=== PATIENT | female | born 1980 | race African-American/Black ===

== ENCOUNTER 2018-06-15 08:30 | Outpatient (CLI) | payer OTHER ==
[2018-06-15 12:28] LABS: BASOPHILS # (AUTO) 0.1 10^3/uL (0.0-0.1); BASOPHILS % (AUTO) 0.7 %; EOSINOPHILS # (AUTO) 0.2 10^3/uL (0.0-0.7); HGB - HEMOGLOBIN 14.9 g/dL (12.0-16.0); LYMPHOCYTES # (AUTO) 2.4 10^3/uL (1.5-3.5); LYMPHOCYTES % (AUTO) 30.7 %; MEAN CORPUSCULAR HEMOGLOBIN 30.3 pg (27.0-31.0); MEAN CORPUSCULAR HGB CONC 33.7 g/dL (32.0-36.0); MEAN PLATELET VOLUME 9.1 fL (7.9-10.8); MONOCYTES # (AUTO) 0.4 10^3/uL (0.0-1.0); MONOCYTES % (AUTO) 5.3 %; NEUTROPHILS # (AUTO) 4.7 10^3/uL (1.5-6.6); NEUTROPHILS % (AUTO) 61.3 %; PLT - PLATELET COUNT 331 10^3/uL (130-450); RED BLOOD COUNT 4.93 10^6/uL (4.20-5.40); RED CELL DISTRIBUTION WIDTH 13.2 % (12.0-15.0); WHITE BLOOD COUNT 7.7 x10^3/uL (4.8-10.8)
[2018-06-15 12:36] LABS: CALCIUM 9.6 mg/dL (8.5-10.3); CARBON DIOXIDE - CO2 30 mmol/L (21-32); CHLORIDE 100 mmol/L (101-111); GLUCOSE 111 mg/dL (70-100); SODIUM 140 mmol/L (135-145)
[2018-06-15 13:12] LABS: ALBUMIN 4.2 g/dL (3.2-5.5); ALBUMIN/GLOBULIN RATIO 1.1 (1.0-2.2); ALKALINE PHOSPHATASE 45 IU/L (42-121); ALT ALANINE AMINOTRANSFERASE 25 IU/L (10-60); AST ASPARTATE AMINOTRANSFERASE 23 IU/L (10-42); BILIRUBIN,TOTAL 0.7 mg/dL (0.2-1.0); BUN - BLOOD UREA NITROGEN 14 mg/dL (6-20); CHOL/HDL RATIO 5.7 (<4.4); CHOLESTEROL 264 mg/dL; CREATININE 0.8 mg/dL (0.4-1.0); GFR - MDRD 98 (>89); HDL CHOLESTEROL 46 mg/dL; LDL CHOLESTEROL,CALCULATED 184 mg/dL; TOTAL PROTEIN 8.1 g/dL (6.7-8.2); VLDL CHOLESTEROL 34 mg/dL
== END 2018-06-15 08:31 | disposition home or self-care (01) ==
LOC: LAB.WCP 08:30
PROVIDERS: ATTEND Family Medicine
DX: I10 Essential (primary) hypertension (principal); E78.5 Hyperlipidemia, unspecified
CPT/HCPCS: 36415; 80053; 80061; 83721; 84443; 85025

== ENCOUNTER 2018-09-05 08:00 | Outpatient (CLI) | payer OTHER | END 2018-09-05 23:59 | disposition home or self-care (01) | LOC: LAB.R 08:00 | PROVIDERS: ATTEND Registered Nurse | DX: R87.619 Unspecified abnormal cytological findings in specimens from cervix uteri (principal) | CPT/HCPCS: 87491; 87591 ==

== ENCOUNTER 2019-01-21 23:17 | Emergency (ER) | payer OTHER ==
--- NOTE | 2019-01-21 23:24 | ED Physician Documentation ---
History of Present Illness - Stated complaint Stated Complaint: HINOJOSA/BP CONCERN - Chief complaint Chief Complaint: Cardiac - History obtained from History obtained from: Patient - Additonal information Additional information: Patient is a 38-year-old female with history of hypertension presenting with elevated blood pressures at home by her reading over the past 1 week. Patient denies particular inciting incident, change medications, change in diet leading up to elevated blood pressures. Patient has been seen by her primary care physician for years regarding her blood pressures and takes several antihypertensives. Patient reports systolic blood pressures in [id number] over the past 1 week, but has not contacted her primary care physician. Patient has a normal appointment scheduled for February 06, 2019. She has not called to see if the appointment can be moved up. Patient denies associated symptoms with elevated blood pressures except for headache earlier tonight. She denies vision changes, chest pain, abdominal pain, urinary or stool changes, vomiting, or other concerns. No other improving or worsening factors noted. Patient is compliant with medications. Review of Systems Cardiac: denies: Chest pain / pressure Respiratory: denies: Dyspnea GI: denies: Abdominal Pain Neurologic: reports: Headache PD PAST MEDICAL HISTORY - Past Medical History Cardiovascular: Hypertension GI: GERD - Past Surgical History Past Surgical History: No - Present Medications Home Medications: Ambulatory Orders Medication Instructions Recorded Confirmed Carvedilol [Coreg] 25 mg PO DAILY 01/21/19 01/21/19 Chlorthalidone 25 mg PO DAILY 01/21/19 01/21/19 Omeprazole 10 mg PO DAILY 01/21/19 01/21/19 - Allergies Allergies/Adverse Reactions: Allergies Allergy/AdvReac Type Severity Reaction Status Date / Time No Known Drug Allergies Allergy Verified 01/21/19 23:22 PD ED PE NORMAL - Vitals Vital signs reviewed: Yes - General General: Alert and oriented X 3, No acute distress, Well developed/nourished - HEENT HEENT: Atraumatic, PERRL, EOMI (Gross visual acuity intact. No nystagmus.) - Cardiac Cardiac: RRR, No murmur - Respiratory Respiratory: No respiratory distress, Clear bilaterally - Abdomen Abdomen: Normal bowel sounds, Soft, Non tender, Non distended - Derm Derm: Normal color, Warm and dry, No rash - Extremities Extremities: No deformity, No tenderness to palpate - Neuro Neuro: Alert and oriented X 3, No motor deficit, No sensory deficit - Psych Psych: Normal mood, Normal affect Results - Vitals Vitals: Vital Signs - 24 hr 01/21/19 01/21/19 01/21/19 23:18 23:21 23:51 Temperature 36.4 C L 36.9 C Heart Rate 69 69 69 Respiratory 16 16 15 Rate Blood Pressure 170/113 H 170/113 H 147/100 H O2 Saturation 99 99 99 01/22/19 00:23 Temperature Heart Rate Respiratory Rate Blood Pressure 141/98 H O2 Saturation Oxygen O2 Source Room air PD MEDICAL DECISION MAKING - ED course Complexity details: re-evaluated patient, considered differential, d/w patient ED course: Patient has baseline hypertension that appears to have been worsening acutely over the past week or so. Patient denies particular inciting incident, change in diet, change of medication that would elicit such a increase. Patient has not yet contacted her primary care physician and was going to wait until her regular a scheduled exam in January to address this. However, given her repeat evaded blood pressure measurements at home, she came in tonight. Patient does arrive with a mild headache which is likely reflective of her elevated blood pressure and indicates hypertensive urgency, but not emergency, particularly as patient denies other symptoms including chest pain, vision changes, difficulty breathing or otherwise. At this time, do not feel patient is experiencing a stroke, ACS, current infarction, unstable angina, or other acute pathology.Do not feel patient requires invasive testing or imaging at this time, but patient received oral metoprolol with appropriate decrease in her blood pressure. Upon reevaluation, patient also reports resolution of her headache. Further evaluated her medications of chlorthalidone and carvedilol and both can increase in dosing. Feel it is most appropriate to start increasing one medication at a time and to have patient follow up closely with PCP in the next 1-2 days, given the holiday tomorrow.Discussed increasing carvedilol to once in the morning and once in the evening as opposed to once daily with patient. Also discussed strict return precautions, other supportive cares, and contacting her primary care physician tomorrow or Tuesday morning in case they are closed for the holiday. Patient voiced understanding and is comfortable with discharge plan. Departure - Departure Disposition: Home, Self Care Clinical Impression: Hypertension Qualifiers: Hypertension type: unspecified Qualified Code(s): I10 - Essential (primary) hypertension Condition: Good Instructions: Hypertension Control, Choices Low Salt Follow-Up: Quoc Godinez MD [Primary Care Provider] - Tomorrow Comments: Please continue home medications as previously instructed except for carvedilol. Please take carvedilol 25 mg in the morning and carvedilol 25 mg in the evening to help control your blood pressure. Please contact your primary care physician tomorrow to schedule outpatient follow-up and hopefully to receive further advice on medication dosing or changes to help control blood pressure. Return to ED immediately if experience return of or worsening headache, vision changes, chest pain, difficulty breathing, lightheadedness, passing out or other concerns.
[2019-01-21] MEDS ORDERED: METOPROLOL TARTRATE 50 MG TABLET PO STA (23:41)
[2019-01-22 00:47] VITALS: BP 133/89
== END 2019-01-22 00:52 | disposition home or self-care (01) ==
LOC: ED 23:17
DX: I16.0 Hypertensive urgency (principal)
CPT/HCPCS: 99283; A9270

== ENCOUNTER 2019-01-24 08:00 | Outpatient (CLI) | payer OTHER ==
[2019-01-24 12:46] LABS: BASOPHILS # (AUTO) 0.1 10^3/uL (0.0-0.1); BASOPHILS % (AUTO) 0.8 %; EOSINOPHILS # (AUTO) 0.4 10^3/uL (0.0-0.7); EOSINOPHILS % (AUTO) 4.7 %; HGB - HEMOGLOBIN 14.5 g/dL (12.0-16.0); LYMPHOCYTES # (AUTO) 2.8 10^3/uL (1.5-3.5); LYMPHOCYTES % (AUTO) 33.6 %; MEAN CORPUSCULAR HEMOGLOBIN 29.8 pg (27.0-31.0); MEAN CORPUSCULAR HGB CONC 33.1 g/dL (32.0-36.0); MEAN PLATELET VOLUME 8.8 fL (7.9-10.8); MONOCYTES # (AUTO) 0.5 10^3/uL (0.0-1.0); MONOCYTES % (AUTO) 5.6 %; NEUTROPHILS # (AUTO) 4.6 10^3/uL (1.5-6.6); NEUTROPHILS % (AUTO) 55.3 %; PLT - PLATELET COUNT 376 10^3/uL (130-450); RED BLOOD COUNT 4.87 10^6/uL (4.20-5.40); RED CELL DISTRIBUTION WIDTH 12.8 % (12.0-15.0); WHITE BLOOD COUNT 8.3 x10^3/uL (4.8-10.8)
[2019-01-24 13:15] LABS: ALBUMIN 4.3 g/dL (3.2-5.5); ALBUMIN/GLOBULIN RATIO 1.2 (1.0-2.2); ALKALINE PHOSPHATASE 45 IU/L (42-121); ALT ALANINE AMINOTRANSFERASE 18 IU/L (10-60); AST ASPARTATE AMINOTRANSFERASE 20 IU/L (10-42); BILIRUBIN,TOTAL 0.8 mg/dL (0.2-1.0); BUN - BLOOD UREA NITROGEN 13 mg/dL (6-20); CALCIUM 9.6 mg/dL (8.5-10.3); CARBON DIOXIDE - CO2 27 mmol/L (21-32); CHLORIDE 100 mmol/L (101-111); CHOL/HDL RATIO 6.9 (<4.4); CHOLESTEROL 288 mg/dL; CREATININE 0.7 mg/dL (0.4-1.0); GFR - MDRD 115 (>89); GLUCOSE 96 mg/dL (70-100); HDL CHOLESTEROL 42 mg/dL; LDL CHOLESTEROL,CALCULATED 201 mg/dL; LDL/HDL RATIO 4.8 (<4.4); SODIUM 140 mmol/L (135-145); VLDL CHOLESTEROL 45 mg/dL
[2019-01-24 14:22] LABS: HB2 TOTAL 15.7 g/dL; HEMOGLOBIN A1C 0.67 g/dL; HEMOGLOBIN A1C % 6.1 % (4.6-6.2)
== END 2019-01-24 23:59 | disposition home or self-care (01) ==
LOC: LAB.WCP 08:00
PROVIDERS: ATTEND Family Medicine
DX: E87.6 Hypokalemia (principal); E78.5 Hyperlipidemia, unspecified; R73.01 Impaired fasting glucose; I10 Essential (primary) hypertension
CPT/HCPCS: 36415; 80053; 80061; 83036; 83721; 84443; 85025

== ENCOUNTER 2019-02-20 08:27 | Outpatient (CLI) | payer OTHER ==
--- NOTE | 2019-02-20 14:07 | Ultrasound Report ---
Reason: IRREGULAR MENSTRUATION Procedure Date: 02/20/2019 Accession Number: [id number] / [id number] Procedure: US - Pelvic w/Transvaginal CPT Code: FULL RESULT: EXAM: PELVIC ULTRASOUND EXAM DATE: 02/20/2019 09:30 AM. CLINICAL HISTORY: Irregular menstruation. COMPARISON: None. TECHNIQUE: Realtime transabdominal pelvic scan performed to identify the uterus and adnexa and as an overview of other pelvic structures, followed by transvaginal scan to provide greater detail of the uterus and adnexa, with static image documentation. FINDINGS: Uterus: 7.5 x 4.2 x 5.2 cm, volume 87 cc. Anteverted position. The echotexture of the uterus is heterogeneous and the demarcation between endometrium and myometrium is indistinct. Masses: None. Endometrium: 4 mm. Indistinct border to the myometrium as described. Cervix: Unremarkable. Right Ovary: 3.7 x 2.2 x 3.6 cm, volume 15 cc. Normal echotexture and blood flow. 1.2 cm cystic structure is most compatible with dominant follicle. Left Ovary: 3.6 x 2.4 x 3.2 cm, volume 14.8 cc. Normal echotexture and blood flow. Largest cystic structure measuring up to 1.6 cm is most compatible with a dominant follicle. Free Fluid: None. Other: None. IMPRESSION: Indistinct border between the myometrium and endometrium with heterogeneous uterine echotexture is nonspecific but can be seen with adenomyosis. Recommendation: If imaging confirmation of the possible diagnosis is desired, MRI is the appropriate modality. RADIA
== END 2019-02-20 08:28 | disposition home or self-care (01) ==
LOC: DI 08:27
PROVIDERS: ATTEND Nurse Practitioner Obstetrics & Gynecology
DX: N92.6 Irregular menstruation, unspecified (principal)
CPT/HCPCS: 76830; 76856

== ENCOUNTER 2019-03-06 09:40 | Outpatient (CLI) | payer OTHER ==
--- NOTE | 2019-03-07 09:16 | MRI Report ---
Reason: POLYOSTEOARTHRITIS,UNSPECIFIED,PAIN IN RIGHT SHOUL Procedure Date: 03/06/2019 Accession Number: [id number] / [id number] Procedure: MRI - Pelvis W/O CPT Code: FULL RESULT: EXAM: MR PELVIS WITHOUT CONTRAST EXAM DATE: 03/06/2019 11:11 AM. CLINICAL HISTORY: Polyosteoarthritis, unspecified; pain in right shoulder. Irregular menses, fertility planning, abnormality seen on prior ultrasound. COMPARISON: PELVIC W/TRANSVAGINAL 02/20/2019 8:44 AM. TECHNIQUE: Multiplanar breath-hold T1, T2, and DWI sequences obtained through the pelvis on an MR scanner. No intravenous contrast given. FINDINGS: Bowel: The visualized portions of the small bowel, colon, and rectum appear normal. Bladder: The urinary bladder appears normal. Reproductive Organs: Posterior and to the right of the vagina is a 1.6 x 1.1 cm Bartholin's cyst image 8 series 501. A few nabothian cysts are noted. The endometrium as measured in mid sagittal plane measures up to 1.0 cm with a junctional zone of up to 0.7 cm. Bony Structures: No suspicious bony lesions. IMPRESSION: Thickened junctional zone of up to 0.7 cm which does not meet formal criteria for adenomyosis (greater than 1.2 cm) but is above the upper limit of normal which is 0.5 cm. RADIA
== END 2019-03-06 09:41 | disposition home or self-care (01) ==
LOC: DI 09:40
PROVIDERS: ATTEND Nurse Practitioner Obstetrics & Gynecology
DX: N92.6 Irregular menstruation, unspecified (principal); N75.0 Cyst of Bartholin's gland; N88.8 Other specified noninflammatory disorders of cervix uteri; R93.89 Abnormal findings on diagnostic imaging of other specified body structures; Z71.89 Other specified counseling
CPT/HCPCS: 72195

== ENCOUNTER 2019-04-14 11:51 | Emergency (ER) | payer OTHER ==
[2019-04-14] MEDS ORDERED: FAMOTIDINE 20 MG/2 ML VIAL IVP STA (12:17)
[2019-04-14] MEDS ORDERED: SODIUM CHLORIDE 0.9% 1,000 ML IV ONE ×2 (12:17→12:20)
[2019-04-14] MEDS ORDERED: ONDANSETRON 4 MG/2 ML VIAL IVP STA (12:17)
[2019-04-14 12:37] LABS: BASOPHILS # (AUTO) 0.1 10^3/uL (0.0-0.1); BASOPHILS % (AUTO) 0.7 %; EOSINOPHILS # (AUTO) 0.2 10^3/uL (0.0-0.7); EOSINOPHILS % (AUTO) 2.6 %; HGB - HEMOGLOBIN 14.5 g/dL (12.0-16.0); LYMPHOCYTES # (AUTO) 2.2 10^3/uL (1.5-3.5); LYMPHOCYTES % (AUTO) 24.7 %; MEAN CORPUSCULAR HEMOGLOBIN 30.9 pg (27.0-31.0); MEAN CORPUSCULAR VOLUME 93.6 fL (81.0-99.0); MEAN PLATELET VOLUME 10.7 fL (7.9-10.8); MONOCYTES # (AUTO) 0.6 10^3/uL (0.0-1.0); MONOCYTES % (AUTO) 6.3 %; NEUTROPHILS # (AUTO) 5.8 10^3/uL (1.5-6.6); NEUTROPHILS % (AUTO) 65.4 %; PLT - PLATELET COUNT 328 10^3/uL (130-450); RED BLOOD COUNT 4.69 10^6/uL (4.20-5.40); RED CELL DISTRIBUTION WIDTH 12.8 % (12.0-15.0); WHITE BLOOD COUNT 8.9 x10^3/uL (4.8-10.8)
[2019-04-14 12:52] LABS: ALBUMIN/GLOBULIN RATIO 1.1 (1.0-2.2); BILIRUBIN,TOTAL 0.9 mg/dL (0.2-1.0); CALCIUM 9.3 mg/dL (8.5-10.3); CREATININE 0.8 mg/dL (0.4-1.0); MAGNESIUM 2.2 mg/dL (1.7-2.8); TOTAL PROTEIN 7.7 g/dL (6.7-8.2)
--- NOTE | 2019-04-14 13:17 | ED Physician Documentation ---
PD HPI NVD - Stated complaint Stated Complaint: WEAKNESS/SICK - Chief complaint Chief Complaint: General - History obtained from History obtained from: Patient - History of Present Illness Timing - onset: How many days ago (5) Timing - duration: Days (5) Timing - details: Abrupt onset (started with vomiting and diarrhea Tuesday (5 days ago) that was severe for a day or so, but has continued with nausea and some vomiting, poor intake. DIarrhea has mainly resolved. Feeling generally weak.), Still present Associated symptoms: Abdominal pain (some epigastric), Loss of appetite. No: Fever, Near syncope / syncope Contributing factors: No: Sick contact, Bad food, Travel, Recent antibiotics Similar symptoms before: Has not had sx before Recently seen: Not recently seen Review of Systems Constitutional: reports: Fatigue. denies: Fever, Myalgias Nose: denies: Rhinorrhea / runny nose, Congestion Throat: denies: Sore throat Cardiac: denies: Chest pain / pressure Respiratory: denies: Cough GI: reports: Nausea, Vomiting, Diarrhea. denies: Abdominal Swelling, Hematemesis, Bloody / black stool : denies: Dysuria, Frequency Neurologic: reports: Generalized weakness. denies: Near syncope, Altered mental status PD PAST MEDICAL HISTORY - Past Medical History Cardiovascular: Hypertension Respiratory: None Endocrine/Autoimmune: None GI: GERD - Past Surgical History Past Surgical History: No - Present Medications Home Medications: Ambulatory Orders Medication Instructions Recorded Confirmed Carvedilol [Coreg] 25 mg PO DAILY 01/21/19 01/21/19 Chlorthalidone 25 mg PO DAILY 01/21/19 01/21/19 Omeprazole 10 mg PO DAILY 01/21/19 01/21/19 Ondansetron Odt [Zofran] 4 mg TL Q6H PRN #10 tablet 04/14/19 - Allergies Allergies/Adverse Reactions: Allergies Allergy/AdvReac Type Severity Reaction Status Date / Time No Known Drug Allergies Allergy Verified 04/14/19 11:57 - Social History Does the pt smoke?: No Smoking Status: Never smoker Does the pt drink ETOH?: No Does the pt have substance abuse?: No - Immunizations Immunizations are current?: Yes - POLST Patient has POLST: No PD ED PE NORMAL - Vitals Vital signs reviewed: Yes - General General: Alert and oriented X 3, No acute distress, Well developed/nourished - HEENT HEENT: Pharynx benign. No: Moist mucous membranes - Neck Neck: Supple, no meningeal sign, No adenopathy - Cardiac Cardiac: RRR, No murmur - Respiratory Respiratory: Clear bilaterally - Abdomen Abdomen: Soft, Non tender, Non distended, No organomegaly. No: Normal bowel sounds (diminished) - Rectal Rectal: Deferred - Back Back: No CVA TTP - Derm Derm: Normal color, Warm and dry - Extremities Extremities: No edema, No calf tenderness / cord Results - Vitals Vitals: Oxygen O2 Source Room air - Labs Labs: Laboratory Tests 04/14/19 04/14/19 04/14/19 12:29 12:29 12:29 WBC 8.9 RBC 4.69 Hgb 14.5 Hct 43.9 MCV 93.6 MCH 30.9 MCHC 33.0 RDW 12.8 Plt Count 328 MPV 10.7 Neut # (Auto) 5.8 Lymph # (Auto) 2.2 [place] # (Auto) 0.6 Eos # (Auto) 0.2 Baso # (Auto) 0.1 Absolute Nucleated RBC 0.00 Nucleated RBC % 0.0 Sodium 138 Potassium 3.5 Chloride 104 Carbon Dioxide 21 Anion Gap 13.0 BUN 13 Creatinine 0.8 Estimated GFR (MDRD) 98 Glucose 136 H Calcium 9.3 Magnesium 2.2 Total Bilirubin 0.9 AST 26 ALT 21 Alkaline Phosphatase 44 Total Creatine Kinase 96 Total Protein 7.7 Albumin 4.0 Globulin 3.7 Albumin/Globulin Ratio 1.1 Lipase 38 Serum HCG, Qual NEGATIVE PD MEDICAL DECISION MAKING - ED course Complexity details: re-evaluated patient (feeling much better with fluids and meds; able to tolerate orally. ), considered differential (presumed viral GE or food related. ), d/w patient Departure - Departure Disposition: Home, Self Care Clinical Impression: Nausea vomiting and diarrhea, Dehydration Condition: Stable Record reviewed to determine appropriate education?: Yes Instructions: ED Nausea Vomiting Follow-Up: Quoc Godinez DO [Primary Care Provider] - Prescriptions: Ondansetron Odt [Zofran] 4 mg TL Q6H PRN #10 tablet PRN Reason: Nausea / Vomiting Comments: Continue some Zantac or Pepcid daily for a week or so as the stomach heals. Ondansetron if needed for nausea. Small frequent fluids today. Off work today and tomorrow. Recheck if not improved over the next few days. Forms: Activity restrictions Discharge Date/Time: 04/14/19 14:04
[2019-04-14 13:31] LABS: HCG,QUALITATIVE BLOOD NEGATIVE
[2019-04-14 13:57] VITALS: BP 119/83
== END 2019-04-14 14:04 | disposition home or self-care (01) ==
LOC: ED 11:51
DX: E86.0 Dehydration (principal); R11.2 Nausea with vomiting, unspecified; R19.7 Diarrhea, unspecified; I10 Essential (primary) hypertension
CPT/HCPCS: 36415; 80053; 82550; 83690; 83735; 84703; 85025; 96374; 99283

== ENCOUNTER 2019-05-10 18:02 | Emergency (ER) | payer OTHER ==
[2019-05-10 18:11] VITALS: BP 129/96
== END 2019-05-10 18:45 | disposition left against medical advice (07) ==
LOC: ED 18:02
DX: Z53.21 Procedure and treatment not carried out due to patient leaving prior to being seen by health care provider (principal)

== ENCOUNTER 2019-05-10 19:05 | Emergency (ER) | payer OTHER ==
--- NOTE | 2019-05-10 20:21 | ED Physician Documentation ---
History of Present Illness - Stated complaint Stated Complaint: L SIDED NUMBNESS - Chief complaint Chief Complaint: General - History obtained from History obtained from: Patient - History of Present Illness Timing: Other (38-year-old woman with history of hypertension presents with a week's worth of progressive left-sided numbness that spans face arm and leg. There is no associated weakness. She has never had this before. She has had some headaches in the mornings.) Review of Systems Constitutional: denies: Fever, Chills Eyes: denies: Loss of vision, Decreased vision, Photophobia, Discharge, Irritation Ears: denies: Loss of hearing, Ear pain, Drainage/discharge Nose: denies: Rhinorrhea / runny nose, Congestion Throat: denies: Dental pain / toothache, Sore throat Cardiac: denies: Chest pain / pressure, Palpitations PD PAST MEDICAL HISTORY - Past Medical History Past Medical History: Yes Cardiovascular: Hypertension Respiratory: None Endocrine/Autoimmune: None GI: GERD - Past Surgical History Past Surgical History: No - Present Medications Home Medications: Ambulatory Orders Medication Instructions Recorded Confirmed Carvedilol [Coreg] 25 mg PO BID 01/21/19 01/21/19 Chlorthalidone 25 mg PO DAILY 01/21/19 01/21/19 Omeprazole 10 mg PO DAILY 01/21/19 01/21/19 hydrALAZINE [Apresoline] 25 mg ORAL BID 05/10/19 05/10/19 - Allergies Allergies/Adverse Reactions: Allergies Allergy/AdvReac Type Severity Reaction Status Date / Time No Known Drug Allergies Allergy Verified 04/14/19 11:57 - Social History Does the pt smoke?: No Smoking Status: Never smoker Does the pt drink ETOH?: No Does the pt have substance abuse?: No - Immunizations Immunizations are current?: Yes - POLST Patient has POLST: No PD ED PE NORMAL - Vitals Vital signs reviewed: Yes - General General: Alert and oriented X 3, No acute distress - HEENT HEENT: PERRL, EOMI - Neck Neck: Supple, no meningeal sign, No bony TTP - Cardiac Cardiac: RRR, No murmur - Respiratory Respiratory: No respiratory distress, Clear bilaterally - Abdomen Abdomen: Normal bowel sounds, Soft, Non tender - Back Back: No CVA TTP, No spinal TTP - Extremities Extremities: No deformity, No tenderness to palpate, No edema, No calf tenderness / cord - Neuro Neuro: Alert and oriented X 3, No motor deficit, Normal speech, Other (NIH stroke scale is only notable for left-sided numbness of the face and arm, she does not notice it on exam on the leg. Total score is 1.) Results - Vitals Vitals: Vital Signs - 24 hr 05/10/19 05/10/19 19:11 22:24 Temperature 36.3 C L Heart Rate 70 64 Respiratory 16 16 Rate Blood Pressure 117/90 H 115/77 O2 Saturation 99 98 Oxygen O2 Source Room air - Labs Labs: Laboratory Tests 05/10/19 05/10/19 05/10/19 20:25 20:32 20:32 WBC 10.6 RBC 4.92 Hgb 14.6 Hct 45.6 MCV 92.7 MCH 29.7 MCHC 32.0 RDW 12.3 Plt Count 382 MPV 10.0 Neut # (Auto) 6.7 H Lymph # (Auto) 2.9 [place] # (Auto) 0.7 Eos # (Auto) 0.2 Baso # (Auto) 0.1 Absolute Nucleated RBC 0.00 Nucleated RBC % 0.0 Sodium 138 Potassium 3.0 L Chloride 95 L Carbon Dioxide 30 Anion Gap 13.0 BUN 13 Creatinine 0.8 Estimated GFR (MDRD) 98 Glucose 105 H Calcium 9.9 Total Bilirubin 0.9 AST 20 ALT 21 Alkaline Phosphatase 47 Total Protein 8.8 H Albumin 4.6 Globulin 4.2 Albumin/Globulin Ratio 1.1 Lipase 37 Urine Color LT. YELLOW Urine Clarity CLEAR Urine pH 7.0 Ur Specific [place] <=1.005 Urine Protein NEGATIVE Urine Glucose (UA) NEGATIVE Urine Ketones NEGATIVE Urine Occult Blood NEGATIVE Urine Nitrite NEGATIVE Urine Bilirubin NEGATIVE Urine Urobilinogen 0.2 (NORMAL) Ur Leukocyte Esterase NEGATIVE Ur Microscopic Review NOT INDICATED Urine Culture Comments NOT INDICATED Urine HCG, Qual NEGATIVE - Rads (name of study) CT/CTA head Radiology: EMP read contemporaneously (mild atrophy, NAD) PD MEDICAL DECISION MAKING - ED course Complexity details: re-evaluated patient ED course: She presents with a week's worth of neurologic symptoms, she has numbness on the left, but no motor findings. Differential diagnosis would include subacute stroke, something along the lines of multiple sclerosis. Given the cranial nerves are affected it must be a central phenomenon. CTA head and angiography of the head was negative. She was advised to follow-up with her doctor tomorrow for consideration for MRI. Departure - Departure Disposition: 01 Home, Self Care Clinical Impression: Left sided numbness Condition: Good Record reviewed to determine appropriate education?: Yes Instructions: ED Paraesthesias Comments: The cause of your symptoms is not clear. The CAT scan and angiogram of your head are without evidence of stroke or vascular issue. I recommend following up with your doctor tomorrow to get scheduled for an MRI of your head. Return for new worsening symptoms. Take a baby aspirin a day until told otherwise by your physician.
[2019-05-10] MEDS ORDERED: IOVERSOL 320 100 ML VIAL IVP ONE ×2 (20:32→21:14)
[2019-05-10 20:36] LABS: BILIRUBIN,URINE NEGATIVE (NEGATIVE); GLUCOSE, URINE (UA) NEGATIVE (NEGATIVE); KETONES,URINE (UA) NEGATIVE (NEGATIVE); LEUKOCYTE ESTERASE, URINE NEGATIVE (NEGATIVE); NITRITE,URINE NEGATIVE (NEGATIVE); OCCULT BLOOD,URINE NEGATIVE (NEGATIVE); PROTEIN,URINE NEGATIVE (NEGATIVE); UROBILINOGEN,URINE 0.2 (NORMAL) E.U./dL (NORMAL)
[2019-05-10 20:41] LABS: CLARITY,URINE CLEAR (CLEAR)
[2019-05-10 20:42] LABS: HCG UR QUAL NEGATIVE
[2019-05-10 20:43] LABS: BASOPHILS # (AUTO) 0.1 10^3/uL (0.0-0.1); BASOPHILS % (AUTO) 0.5 %; EOSINOPHILS # (AUTO) 0.2 10^3/uL (0.0-0.7); EOSINOPHILS % (AUTO) 2.3 %; HGB - HEMOGLOBIN 14.6 g/dL (12.0-16.0); LYMPHOCYTES # (AUTO) 2.9 10^3/uL (1.5-3.5); LYMPHOCYTES % (AUTO) 27.7 %; MEAN CORPUSCULAR HEMOGLOBIN 29.7 pg (27.0-31.0); MEAN CORPUSCULAR VOLUME 92.7 fL (81.0-99.0); MONOCYTES # (AUTO) 0.7 10^3/uL (0.0-1.0); MONOCYTES % (AUTO) 6.1 %; NEUTROPHILS # (AUTO) 6.7 10^3/uL (1.5-6.6); NEUTROPHILS % (AUTO) 63.2 %; PLT - PLATELET COUNT 382 10^3/uL (130-450); RED BLOOD COUNT 4.92 10^6/uL (4.20-5.40); RED CELL DISTRIBUTION WIDTH 12.3 % (12.0-15.0); WHITE BLOOD COUNT 10.6 x10^3/uL (4.8-10.8)
[2019-05-10 21:00] LABS: ALBUMIN 4.6 g/dL (3.2-5.5); ALBUMIN/GLOBULIN RATIO 1.1 (1.0-2.2); BILIRUBIN,TOTAL 0.9 mg/dL (0.2-1.0); CALCIUM 9.9 mg/dL (8.5-10.3); CREATININE 0.8 mg/dL (0.4-1.0); TOTAL PROTEIN 8.8 g/dL (6.7-8.2)
[2019-05-10 22:25] VITALS: BP 115/77
--- NOTE | 2019-05-10 22:45 | CT Report ---
Reason: L sided numbness Procedure Date: 05/10/2019 Accession Number: [id number] / [id number] Procedure: CT - ANGIO HEAD W/WO CPT Code: FULL RESULT: EXAM: CT ANGIOGRAM HEAD. CT SCAN OF THE HEAD WITHOUT AND WITH CONTRAST. EXAM DATE: 05/10/2019 09:15 PM. CLINICAL HISTORY: Left-sided numbness. COMPARISON: None. TECHNIQUE: - CT Scan Head: Using a multidetector scanner, axial images were acquired from the foramen magnum to the skull vertex prior to and following contrast administration. - CT Angiogram: Using a multidetector scanner, high-resolution axial images were acquired from the skull base through vertex following rapid infusion of intravenous contrast. Reformats: Multiplanar MIP reformats were reconstructed. Nascet criteria used for stenosis measurement. IV Contrast: OPTI 320 80 mL. In accordance with CT protocol optimization, one or more of the following dose reduction techniques were utilized for this exam: automated exposure control, adjustment of mA and/or KV based on patient size, or use of iterative reconstructive technique. FINDINGS: NON-CONTRAST HEAD: Parenchyma: No intraparenchymal hemorrhage. No evidence of mass, midline shift, or CT findings of infarction. Bhatia-white differentiation is distinct. Extraaxial Spaces: Mildly prominent low density bilateral frontal extra-axial fluid is present, likely representing expansion of the subarachnoid space from underlying cerebral volume loss which is greater than expected for the patient's age. No subdural or epidural collections identified. Ventricles: Normal in size and position. Sinuses and orbits: A small mucous retention cyst is present in the right maxillary sinus. The orbits and mastoid sinuses are unremarkable. Bones: No evidence of fracture or calvarial defect. POST-CONTRAST HEAD: No abnormal enhancement. There is normal contrast opacification in the dural venous sinuses. CT ANGIOGRAM HEAD: The internal carotid arteries are patent from the superior cervical to the supraclinoid portions. Mild calcified plaque is present in the bilateral carotid siphons but no high-grade stenosis is seen. The bilateral A1, A2, M1, M2 segments are patent. A normal caliber anterior communicating artery is present. In the posterior circulation, the bilateral V4 segments are patent. The bilateral PICAs are patent. The basilar artery is widely patent throughout its course to the terminus. There is normal contrast opacification in the superior cerebellar and posterior cerebral arteries. There is near origin of the right posterior cerebral artery with a hypoplastic P1 segment, normal variant. A left posterior communicating artery is not seen. IMPRESSION: 1. Mild generalized cerebral volume loss is present, greater than expected for the patient's age. 2. No other acute intracranial process or abnormal brain parenchymal enhancement is seen. 3. Patent dural venous sinuses. 4. Unremarkable CTA of the head. RADIA
[2019-05-10] MEDS ORDERED: ASPIRIN CHEW 81 MG TABLET PO STA (23:03)
== END 2019-05-10 23:07 | disposition home or self-care (01) ==
LOC: ED 19:05
DX: R20.0 Anesthesia of skin (principal); I10 Essential (primary) hypertension
CPT/HCPCS: 36415; 70496; 80053; 81003; 81025; 83690; 85025; 99284; A9270; Q9967; 81001; 87086

== ENCOUNTER 2019-05-11 11:15 | Outpatient (CLI) | payer OTHER ==
--- NOTE | 2019-05-11 13:33 | XRAY Report ---
Reason: LEFT CERVICAL RADICULOPATHY Procedure Date: 05/11/2019 Accession Number: [id number] / [id number] Procedure: WCP - Cervical Spine 2 View CPT Code: FULL RESULT: EXAM: CERVICAL SPINE RADIOGRAPHY EXAM DATE: 05/11/2019 11:36 AM. CLINICAL HISTORY: LEFT CERVICAL RADICULOPATHY. COMPARISONS: None. TECHNIQUE: 3 views. FINDINGS: Alignment: Normal. No spondylolisthesis or scoliosis. Bones: The cervical vertebral bodies and posterior elements are well visualized from the skull base through C7-T1. No fractures or bone lesions. Disks: Normal. Disk heights are maintained. Facets: No degenerative disease. Soft Tissues: Normal. No prevertebral soft tissue swelling. The visualized lung apices are clear. IMPRESSION: Normal cervical spine radiography. RADIA
== END 2019-05-11 23:59 | disposition home or self-care (01) ==
LOC: DI.WCP 11:15 → EDSTATUS 13:36 → DI.WCP 23:59
PROVIDERS: ATTEND Family Medicine
DX: M54.12 Radiculopathy, cervical region (principal)
CPT/HCPCS: 72040

== ENCOUNTER 2019-07-23 08:00 | Outpatient (CLI) | payer OTHER ==
[2019-07-23 19:11] LABS: ALBUMIN 4.2 g/dL (3.2-5.5); ALBUMIN/GLOBULIN RATIO 1.2 (1.0-2.2); ALKALINE PHOSPHATASE 40 IU/L (42-121); ALT ALANINE AMINOTRANSFERASE 18 IU/L (10-60); AST ASPARTATE AMINOTRANSFERASE 19 IU/L (10-42); BILIRUBIN,TOTAL 0.9 mg/dL (0.2-1.0); BUN - BLOOD UREA NITROGEN 12 mg/dL (6-20); CALCIUM 9.3 mg/dL (8.5-10.3); CARBON DIOXIDE - CO2 27 mmol/L (21-32); CHLORIDE 98 mmol/L (101-111); CHOL/HDL RATIO 4.8 (<4.4); CHOLESTEROL 240 mg/dL; CREATININE 0.9 mg/dL (0.4-1.0); GFR - MDRD 85 (>89); GLUCOSE 168 mg/dL (70-100); HDL CHOLESTEROL 50 mg/dL; LDL CHOLESTEROL,CALCULATED 163 mg/dL; LDL/HDL RATIO 3.3 (<4.4); SODIUM 135 mmol/L (135-145); TOTAL PROTEIN 7.6 g/dL (6.7-8.2); VLDL CHOLESTEROL 27 mg/dL
[2019-07-23 19:24] LABS: HB2 TOTAL 14.4 g/dL; HEMOGLOBIN A1C 0.55 g/dL; HEMOGLOBIN A1C % 5.6 % (4.6-6.2)
== END 2019-07-23 23:59 | disposition home or self-care (01) ==
LOC: LAB.WCP 08:00
PROVIDERS: ATTEND Family Medicine
DX: E78.5 Hyperlipidemia, unspecified (principal); R73.01 Impaired fasting glucose
CPT/HCPCS: 36415; 80053; 80061; 83036; 83721

== ENCOUNTER 2019-08-01 08:00 | Outpatient (CLI) | payer OTHER ==
[2019-08-01 13:36] LABS: CALCIUM 9.2 mg/dL (8.5-10.3); CREATININE 0.8 mg/dL (0.4-1.0)
== END 2019-08-01 23:59 | disposition home or self-care (01) ==
LOC: LAB.WCP 08:00
PROVIDERS: ATTEND Family Medicine
DX: E87.6 Hypokalemia (principal)
CPT/HCPCS: 36415; 80048

== ENCOUNTER 2019-08-06 10:39 | Emergency (ER) | payer OTHER ==
[2019-08-06 11:16] LABS: BILIRUBIN,URINE NEGATIVE (NEGATIVE); GLUCOSE, URINE (UA) NEGATIVE (NEGATIVE); KETONES,URINE (UA) NEGATIVE (NEGATIVE); LEUKOCYTE ESTERASE, URINE TRACE (NEGATIVE); NITRITE,URINE NEGATIVE (NEGATIVE); OCCULT BLOOD,URINE LARGE (NEGATIVE); PH,URINE 6.5 PH (5.0-7.5); PROTEIN,URINE NEGATIVE (NEGATIVE); UROBILINOGEN,URINE 0.2 (NORMAL) E.U./dL (NORMAL)
[2019-08-06 11:19] LABS: CLARITY,URINE HAZY (CLEAR)
[2019-08-06 11:28] LABS: BACTERIA,URINE Many /HPF (None Seen); SQUAMOUS EPITHELIAL CELL,UR MANY Squamous (<= Few)
[2019-08-06 11:56] LABS: HCG,QUALITATIVE BLOOD POSITIVE
--- NOTE | 2019-08-06 13:26 | Ultrasound Report ---
Reason: vaginal bleeding, , eval for ectopic Procedure Date: 08/06/2019 Accession Number: [id number] / [id number] Procedure: US - OB First Trimester CPT Code: Final Report FULL RESULT: EXAM: PELVIC ULTRASOUND EXAM DATE: 08/06/2019 12:45 PM. CLINICAL HISTORY: Vaginal bleeding, , eval for ectopic. COMPARISON: None. TECHNIQUE: Realtime transabdominal pelvic scan performed to identify the uterus and adnexa and as an overview of other pelvic structures, followed by transvaginal scan to provide greater detail of the uterus and adnexa, with static image documentation. FINDINGS: Uterus: Unremarkable. Masses: None. Endometrium: No intrauterine . Cervix: Small amount of fluid in the endocervical canal. Right Ovary: 3.1 x 2.8 x 2.2 cm. Normal echotexture and blood flow. Left Ovary: 2.9 x 2.7 x 2.5 cm. Normal echotexture and blood flow. Free Fluid: None. Other: None. IMPRESSION: 1. No intrauterine identified. Small amount of fluid in the endocervical canal. 2. No free fluid in the pelvis. No pelvic mass identified. While no ectopic identified, this cannot be entirely excluded by ultrasound. Consider serial beta hCG level testing and if clinically indicated repeat pelvic ultrasound. [facility]
[2019-08-06] MEDS ORDERED: ACETAMINOPHEN 325 MG TABLET PO STA (13:50)
--- NOTE | 2019-08-06 15:11 | ED Physician Documentation ---
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 denies: Abdominal Swelling, Nausea, Vomiting : reports: Vaginal bleeding, Irregular menses, Now EGA (unknown) Skin: reports: Reviewed and negative Musculoskeletal: reports: Reviewed and negative Neurologic: reports: Reviewed and negative. denies: Syncope Endocrine: reports: Reviewed and negative. denies: Easy bruising / bleeding Immunocompromised: reports: Reviewed and negative PD PAST MEDICAL HISTORY - Past Medical History Past Medical History: Yes Cardiovascular: Hypertension Respiratory: None Endocrine/Autoimmune: None GI: GERD - Past Surgical History Past Surgical History: No - Present Medications Home Medications: Ambulatory Orders Medication Instructions Recorded Confirmed Carvedilol [Coreg] 25 mg PO BID 01/21/19 01/21/19 Chlorthalidone 25 mg PO DAILY 01/21/19 01/21/19 hydrALAZINE [Apresoline] 25 mg ORAL BID 05/10/19 05/10/19 Potassium Chloride 20 meq PO DAILY 08/06/19 08/06/19 - Allergies Allergies/Adverse Reactions: Allergies Allergy/AdvReac Type Severity Reaction Status Date / Time shrimp Allergy Unknown Verified 05/11/19 07:45 - Social History Does the pt smoke?: No Smoking Status: Never smoker Does the pt drink ETOH?: No Does the pt have substance abuse?: No - Immunizations Immunizations are current?: Yes - POLST Patient has POLST: No PD ED PE NORMAL - Vitals Vital signs reviewed: Yes - General General: Alert and oriented X 3, No acute distress, Well developed/nourished - HEENT HEENT: Atraumatic, Moist mucous membranes, Pharynx benign - Neck Neck: Supple, no meningeal sign - Cardiac Cardiac: RRR - Respiratory Respiratory: No respiratory distress - Abdomen Abdomen: Soft, Other (left lower quadrant and suprapubic tenderness, no guarding or rebound ) - Female Female : Deferred - Rectal Rectal: Deferred - Derm Derm: Normal color, Warm and dry, No rash - Extremities Extremities: No deformity - Neuro Neuro: Alert and oriented X 3 Eye Opening: Spontaneous Motor: Obeys Commands Verbal: Oriented GCS Score: 15 - Psych Psych: Normal mood, Normal affect PD ED PE EXPANDED - Abdomen Abdomen: Tender to palpation, LLQ Results - Vitals Vitals: Vital Signs - 24 hr 08/06/19 08/06/19 08/06/19 10:44 14:22 16:52 Temperature 36.5 C Heart Rate 73 73 67 Respiratory 18 18 18 Rate Blood Pressure 125/92 H 119/76 128/92 H O2 Saturation 98 98 97 Oxygen O2 Source Room air - Labs Labs: Laboratory Tests 08/06/19 08/06/19 08/06/19 10:50 11:12 11:12 Serum HCG, Qual POSITIVE HCG, Quant 5992.00 Urine Color YELLOW Urine Clarity HAZY Urine pH 6.5 Ur Specific [place] <=1.005 Urine Protein NEGATIVE Urine Glucose (UA) NEGATIVE Urine Ketones NEGATIVE Urine Occult Blood LARGE H Urine Nitrite NEGATIVE Urine Bilirubin NEGATIVE Urine Urobilinogen 0.2 (NORMAL) Ur Leukocyte Esterase TRACE H Urine RBC 6-10 H Urine WBC 4-5 Ur Squamous Epith Cells MANY Squamous H Urine Bacteria Many H Ur Microscopic Review INDICATED Urine Culture Comments NOT INDICATED Blood Type Antibody Screen 08/06/19 16:29 Serum HCG, Qual HCG, Quant Urine Color Urine Clarity Urine pH Ur Specific [place] Urine Protein Urine Glucose (UA) Urine Ketones Urine Occult Blood Urine Nitrite Urine Bilirubin Urine Urobilinogen Ur Leukocyte Esterase Urine RBC Urine WBC Ur Squamous Epith Cells Urine Bacteria Ur Microscopic Review Urine Culture Comments Blood Type O POSITIVE Antibody Screen NEGATIVE SHe is O positive - Rads (name of study) US obstetric transvaginal Radiology: Final report received, See rad report PD MEDICAL DECISION MAKING - ED course Complexity details: reviewed results, re-evaluated patient, considered differential, d/w patient, d/w family, d/w recruitment consultant ED course: ddx- miscarriage, ectopic , blighted ovum, early , threatened 39 y/o F with hx and exam as documented. Elevated BHCG to >5000 with no IUP seen on US. Her bleeding is not severe, she has stable vitals, no syncope. She does have some lower abdominal tenderness mainly on the left side. There is no evidence of ectopic on US. She does have some endocervical fluid which is likely blood. Discussed her case with Dr. Ng who advised repeat BHCG in 3 days. She was given tylenol for pain with some relief. She is O positive and thus does not need Rhogam. Discussed results with pt and family as well as strict return precautions if worsening pain, worsening bleeding, fever, syncope or other new concerns. - Consults Consults: Consulted (name) (Dr. Ng) Departure - Departure Disposition: 01 Home, Self Care Clinical Impression: Vaginal bleeding in patient at less than 20 weeks gestation Condition: Stable Record reviewed to determine appropriate education?: Yes Follow-Up: Donna Ng MD [Provider Admit Priv/Credential] - Within 3 Days Comments: Your labs and ultrasound today demonstrated that while you are currently there is no definite inside your uterus identified on ultrasound. This means it could be a miscarriage, early , twin or ectopic . Unfortunately the only way to tell is to repeat your lab work in 3 days and see which direction your Beta HCG hormone is going. Your beta HCG level here was 5992. You need to have a repeat Beta HCG drawn in 3 days. You should call your Obgyn office to follow up. If severe pain, syncope (passing out), or hemorrhage return to the ED. Discharge Date/Time: 08/06/19 16:52
[2019-08-06 16:53] VITALS: BP 128/92
== END 2019-08-06 16:52 | disposition home or self-care (01) ==
LOC: ED 10:39
DX: O20.9 Hemorrhage in early pregnancy, unspecified (principal); O10.911 Unspecified pre-existing hypertension complicating pregnancy, first trimester; O09.511 Supervision of elderly primigravida, first trimester; Z3A.01 Less than 8 weeks gestation of pregnancy
CPT/HCPCS: 36415; 76801; 76817; 81001; 84702; 84703; 86850; 86900; 86901; 99284; 99285; A9270; 81003; 87086

== ENCOUNTER 2019-08-08 10:41 | Outpatient (CLI) | payer OTHER | END 2019-08-08 10:42 | disposition home or self-care (01) | LOC: LAB 10:41 | PROVIDERS: ATTEND Nurse Practitioner Obstetrics & Gynecology | DX: Z32.01 Encounter for pregnancy test, result positive (principal) | CPT/HCPCS: 36415; 84702 ==

== ENCOUNTER 2019-08-10 12:48 | Outpatient (CLI) | payer OTHER | END 2019-08-10 12:49 | disposition home or self-care (01) | LOC: LAB 12:48 | PROVIDERS: ATTEND Nurse Practitioner Obstetrics & Gynecology | DX: Z32.01 Encounter for pregnancy test, result positive (principal) | CPT/HCPCS: 36415; 84702 ==

== ENCOUNTER 2019-08-15 14:34 | Outpatient (CLI) | payer OTHER ==
--- NOTE | 2019-08-15 17:22 | Ultrasound Report ---
Reason: UNCERTAIN VIABILITY OF Procedure Date: 08/15/2019 Accession Number: [id number] / [id number] Procedure: US - OB First Trimester CPT Code: Final Report FULL RESULT: EXAM: FIRST TRIMESTER OBSTETRIC ULTRASOUND (Less than 11 weeks) EXAM DATE: 08/15/2019 04:24 PM. CLINICAL HISTORY: UNCERTAIN VIABILITY OF . HCG 7448 on 08/10/2019. Spotting. No pain. LMP: Unknown. COMPARISONS: OB FIRST TRIMESTER 08/06/2019 12:14 PM PELVIS W/O 03/06/2019 10:40 AM PELVIC W/TRANSVAGINAL 02/20/2019 8:44 AM. TECHNIQUE: Transabdominal and transvaginal ultrasound examination with me present with static image documentation. CLINICAL DATES: EGA uncertain based on prior ultrasound. ASSESSMENT: Gestational Sac: Not definitely seen MATERNAL STRUCTURES: Uterus: Anteverted. Unremarkable. Cervix: Closed. Right Ovary/Adnexa: The ovary measures 3.3 x 2.2 x 2.6 cm, volume 9.8 cc. Unremarkable. Left Ovary/Adnexa: The ovary measures 3.8 x 2.5 x 2.7 cm, volume 13.1 cc. Unremarkable. 1.5 x 1.5 x 1.2 cm corpus luteum cyst. Free Fluid: None. Other: 1.8 x 1.3 x 2.1 cm separate hypoechoic avascular structure seen inferior to the right ovary adjacent to the cervix uncertain significance.. IMPRESSION: 1. An intrauterine gestational sac is not definitely seen. 2. No free fluid to suggest an ectopic . 3. Findings worrisome for a failed . Suggest follow-up beta hCG level. RADIA
== END 2019-08-15 14:35 | disposition home or self-care (01) ==
LOC: DI 14:34
PROVIDERS: ATTEND Nurse Practitioner Obstetrics & Gynecology
DX: O36.80X0 Pregnancy with inconclusive fetal viability, not applicable or unspecified (principal)
CPT/HCPCS: 76801; 76817

== ENCOUNTER 2019-08-17 19:02 | Emergency (ER) | payer OTHER ==
[2019-08-17] MEDS ORDERED: METHOTREXATE 50 MG/2 ML MDV IM STA (19:26)
[2019-08-17] MEDS ORDERED: HYDROcod/ACET 5/325 Prepack 4 PO STA (19:49)
[2019-08-17] MEDS ORDERED: ONDANSETRON ODT 4 MG Prepack 2 TL PRN (19:49)
--- NOTE | 2019-08-17 19:51 | ED Physician Documentation ---
PD HPI ABD PAIN - Stated complaint Stated Complaint: SPOTTING/NAUSEA - Chief complaint Chief Complaint: Abd Pain - History obtained from History obtained from: Patient - History of Present Illness Timing - onset: Other (39-year-old woman referred in by gynecology for likely ectopic for treatment with methotrexate. On my evaluation the marketing specialist is at the bedside discussing the results. Basically she is had an inappropriate rise in hCG and an ultrasound showed a small adnexal mass measuring at most 2 cm concerning for ectopic. There was no intrauterine despite having a beta-hCG that should be showing a intrauterine .) Review of Systems Constitutional: denies: Fever, Chills Cardiac: denies: Chest pain / pressure, Palpitations Respiratory: denies: Dyspnea, Cough PD PAST MEDICAL HISTORY - Past Medical History Past Medical History: Yes Cardiovascular: Hypertension Respiratory: None Endocrine/Autoimmune: None GI: GERD - Past Surgical History Past Surgical History: No - Present Medications Home Medications: Ambulatory Orders Medication Instructions Recorded Confirmed Carvedilol [Coreg] 25 mg PO BID 01/21/19 01/21/19 Chlorthalidone 25 mg PO DAILY 01/21/19 01/21/19 hydrALAZINE [Apresoline] 25 mg ORAL BID 05/10/19 05/10/19 Potassium Chloride 20 meq PO DAILY 08/06/19 08/06/19 - Allergies Allergies/Adverse Reactions: Allergies Allergy/AdvReac Type Severity Reaction Status Date / Time shrimp Allergy Unknown Verified 08/17/19 19:16 - Social History Does the pt smoke?: No Smoking Status: Never smoker Does the pt drink ETOH?: No Does the pt have substance abuse?: No - Immunizations Immunizations are current?: Yes - POLST Patient has POLST: No PD ED PE NORMAL - Vitals Vital signs reviewed: Yes - General General: Alert and oriented X 3, No acute distress, Other (Tearful) - Back Back: No CVA TTP, No spinal TTP - Derm Derm: Normal color, Warm and dry - Neuro Neuro: Alert and oriented X 3, Normal speech Results - Vitals Vitals: Vital Signs - 24 hr 08/17/19 19:16 Temperature 36.8 C Heart Rate 75 Respiratory 16 Rate Blood Pressure 132/86 H O2 Saturation 98 Oxygen O2 Source Room air PD MEDICAL DECISION MAKING - ED course ED course: Primary management was done by the aligner typewriter, Dr. Landeros who requested that I write for methotrexate in the dose we agreed on. She will follow-up Tuesday for serial beta hCG with her cam milling machine operator and return if worse. Departure - Departure Disposition: Home, Self Care Clinical Impression: Ectopic Qualifiers: Location of ectopic : unspecified location Intrauterine status: without intrauterine Qualified Code(s): O00.90 - Unspecified ectopic without intrauterine Condition: Good Record reviewed to determine appropriate education?: Yes Instructions: ED Preg Ectopic Methotrexate Tx Follow-Up: Lisa Abdi CNM, DISPATCHER CLERK [Provider Admit Priv/Credential] - (Call Tuesday for an appointment on Tuesday) Comments: For mild to moderate pain you can take ibuprofen. Return for severe pain or significant bleeding.
[2019-08-17 19:59] LABS: BASOPHILS # (AUTO) 0.1 10^3/uL (0.0-0.1); BASOPHILS % (AUTO) 0.3 %; EOSINOPHILS # (AUTO) 0.3 10^3/uL (0.0-0.7); EOSINOPHILS % (AUTO) 2.2 %; HGB - HEMOGLOBIN 13.9 g/dL (12.0-16.0); LYMPHOCYTES # (AUTO) 3.7 10^3/uL (1.5-3.5); LYMPHOCYTES % (AUTO) 24.7 %; MEAN CORPUSCULAR HEMOGLOBIN 30.8 pg (27.0-31.0); MEAN CORPUSCULAR HGB CONC 32.8 g/dL (32.0-36.0); MEAN CORPUSCULAR VOLUME 93.8 fL (81.0-99.0); MEAN PLATELET VOLUME 9.9 fL (7.9-10.8); MONOCYTES # (AUTO) 1.1 10^3/uL (0.0-1.0); MONOCYTES % (AUTO) 7.1 %; NEUTROPHILS # (AUTO) 9.7 10^3/uL (1.5-6.6); PLT - PLATELET COUNT 412 10^3/uL (130-450); RED BLOOD COUNT 4.52 10^6/uL (4.20-5.40); RED CELL DISTRIBUTION WIDTH 12.3 % (12.0-15.0); WHITE BLOOD COUNT 14.9 x10^3/uL (4.8-10.8)
[2019-08-17 20:12] LABS: ALBUMIN 4.2 g/dL (3.2-5.5); ALBUMIN/GLOBULIN RATIO 1.1 (1.0-2.2); BILIRUBIN,TOTAL 0.5 mg/dL (0.2-1.0); CALCIUM 9.8 mg/dL (8.5-10.3); CREATININE 0.8 mg/dL (0.4-1.0); TOTAL PROTEIN 8.2 g/dL (6.7-8.2)
[2019-08-17 20:15] VITALS: BP 130/92
--- NOTE | 2019-08-17 20:51 | CONSULTATION NOTE ---
Referring Provider Name of Referring Provider:: Roberta Consult Date: 08/17/19 (Ectopic dx in clinic, sent ot ED) Chief Complaint - Chief Complaint Chief Complaint: 39 yo G1 who presents with ectopic needing MTHX trtr History of Present Illness - Admitted From Admitted From:: clinic - History Obtained From Records Reviewed: yes History obtained from: provider and patient - History of Present Illness HPI Comment/Other: Patient is a 39 yo G0 that has been followed by Lisa Abdi CNM, in clinic. She had presented for WWE and noted abnormal VB. test was positive. She underwent serial HCGs over 10 days. These returned with an inapproprate rise. Recent pelvic us showed no IUP with HCG > 7000. A 2 cm complex appearing mass was noted behind the uterus, presumably within the adnexa. Measured less than 2 cm and no cardiac activity was noted. Minimal free fluid. Patient had been having some sharp abdominal pain a few days ago that has since resolved. Mild VB. No recent SA. No symptoms at present. This is a highly desired and patient is despondent. Rh positive. HCG 7552, minimal increase from one week ago. Normal LFTas and creatinine. History - Past Medical History Cardiovascular: reports: Hypertension Respiratory: reports: None Endocrine/Autoimmune: reports: None GI: reports: GERD MRSA Hx?: No - POLST Patient has POLST: No Meds/Allgy - Home Medications Home Medications: Ambulatory Orders Medication Instructions Recorded Confirmed Carvedilol [Coreg] 25 mg PO BID 01/21/19 01/21/19 Chlorthalidone 25 mg PO DAILY 01/21/19 01/21/19 hydrALAZINE [Apresoline] 25 mg ORAL BID 05/10/19 05/10/19 Potassium Chloride 20 meq PO DAILY 08/06/19 08/06/19 - Allergies Allergies/Adverse Reactions: Allergies Allergy/AdvReac Type Severity Reaction Status Date / Time shrimp Allergy Unknown Verified 08/17/19 19:16 Review of Systems - Other Findings Other Findings: As per HPI, remaining systems are negative. Exam - Vital Signs Vital Signs: Vital Signs x48h Temp Pulse Resp BP Pulse Ox 08/17/19 20:14 97.5 F L 69 18 130/92 H 99 08/17/19 19:16 98.2 F 75 16 132/86 H 98 - Physical Exam General Appearance: positive: No acute distress Neck: positive: Nml inspection Respiratory: positive: No respiratory distress, Breath sounds nml Cardiovascular: positive: Regular rate & rhythm Abdomen: positive: Non-tender, No distention, Other (soft) Extremities: positive: Non-tender Neurologic/Psychiatric: positive: Oriented x3 Reflexes: Bicep (R): 0 Conclusion/Plan - Diagnosis Diagnosis: Ectopic - Plan Plan: Reviewed diangnosis and management of ectopic pregnancies Given inappropriate rise, no IUP noted with HCG > 7000, and small adnexal mass, criteria for ectopic are fulfilled Reviewed futility and dangers of continued expectant management Reviewed management options of MTHX vs surgery HCG > 5000, but otherwise meets criteria for MTHX management. No free fluid, no cardiac activty, mass less than 5 cm Reviewed that risk of needing additional MHTX at starting HCG 7500 is high. However, given her clinical stability and desire for , avoiding surgical management is appropriate in this scenario Review warning signs requiring immediate presentation to ED Reviewed that consequences of ruptured ectopic can be severe, including tranfusion, open surgery, and Will FU on 08/21/19 with Abi Abdi CNM Will need HCG levels of day 4 and day 7 Anticipate increase in HCG on day 4 as this represents peak levels Warning signs reviewed DC to home once MTHX given - Lab Results Fish Bones: 08/17/19 19:45 08/17/19 19:45
== END 2019-08-17 20:20 | disposition home or self-care (01) ==
LOC: ED 19:02
DX: O00.90 Unspecified ectopic pregnancy without intrauterine pregnancy (principal); I10 Essential (primary) hypertension
CPT/HCPCS: 36415; 80053; 84702; 85025; 96374; 99283; J9250

== ENCOUNTER 2019-08-21 11:22 | Outpatient (CLI) | payer OTHER | END 2019-08-21 11:23 | disposition home or self-care (01) | LOC: LAB 11:22 | PROVIDERS: ATTEND Nurse Practitioner Obstetrics & Gynecology | DX: Z87.59 Personal history of other complications of pregnancy, childbirth and the puerperium (principal) | CPT/HCPCS: 36415; 84702 ==

== ENCOUNTER 2019-08-24 08:00 | Outpatient (CLI) | payer OTHER ==
[2019-08-24 13:21] LABS: CALCIUM 9.7 mg/dL (8.5-10.3); CREATININE 0.7 mg/dL (0.4-1.0)
== END 2019-08-24 23:59 | disposition home or self-care (01) ==
LOC: LAB.WCP 08:00
PROVIDERS: ATTEND Nurse Practitioner Obstetrics & Gynecology
DX: Z87.59 Personal history of other complications of pregnancy, childbirth and the puerperium (principal); E87.6 Hypokalemia
CPT/HCPCS: 36415; 80048; 84702

== ENCOUNTER 2019-08-27 07:00 | Outpatient (CLI) | payer OTHER ==
[2019-08-27 18:54] LABS: HCG UR QUAL POSITIVE
== END 2019-08-27 23:59 | disposition home or self-care (01) ==
LOC: LAB.WCP 07:00
PROVIDERS: ATTEND Nurse Practitioner Obstetrics & Gynecology
DX: N92.6 Irregular menstruation, unspecified (principal)
CPT/HCPCS: 81025

== ENCOUNTER 2019-08-31 07:00 | Outpatient (CLI) | payer OTHER ==
[2019-08-31 18:49] LABS: ALBUMIN/GLOBULIN RATIO 1.2 (1.0-2.2); BILIRUBIN,TOTAL 0.6 mg/dL (0.2-1.0); CALCIUM 9.1 mg/dL (8.5-10.3); CREATININE 0.8 mg/dL (0.4-1.0); TOTAL PROTEIN 7.4 g/dL (6.7-8.2)
== END 2019-08-31 23:59 | disposition home or self-care (01) ==
LOC: LAB.WCP 07:00
PROVIDERS: ATTEND Nurse Practitioner Family
DX: E87.6 Hypokalemia (principal)
CPT/HCPCS: 36415; 80053; 81599; 83935; 84300

== ENCOUNTER 2019-09-03 10:16 | Outpatient (CLI) | payer OTHER | END 2019-09-03 23:59 | disposition home or self-care (01) | LOC: LAB.WCP 10:16 | PROVIDERS: ATTEND Obstetrics & Gynecology | DX: Z87.59 Personal history of other complications of pregnancy, childbirth and the puerperium (principal) | CPT/HCPCS: 36415; 84702 ==

== ENCOUNTER 2019-09-07 07:00 | Outpatient (CLI) | payer OTHER | END 2019-09-07 23:59 | disposition home or self-care (01) | LOC: LAB.WCP 07:00 | PROVIDERS: ATTEND Family Medicine | DX: Z87.59 Personal history of other complications of pregnancy, childbirth and the puerperium (principal) | CPT/HCPCS: 36415; 84702 ==

== ENCOUNTER 2019-09-14 08:00 | Outpatient (CLI) | payer OTHER | END 2019-09-14 23:59 | disposition home or self-care (01) | LOC: LAB.WCP 08:00 | PROVIDERS: ATTEND Obstetrics & Gynecology | DX: Z87.59 Personal history of other complications of pregnancy, childbirth and the puerperium (principal) | CPT/HCPCS: 36415; 84702 ==

== ENCOUNTER 2019-09-16 06:42 | Day surgery (SDC) | payer OTHER ==
[2019-09-16] MEDS ORDERED: HYDROmorphone 1 MG/ML CARPUJECT IVP STA ×2 (06:50→07:22)
[2019-09-16] MEDS ORDERED: SODIUM CHLORIDE 0.9% 1,000 ML IV ONE (06:50)
[2019-09-16] MEDS ORDERED: ONDANSETRON 4 MG/2 ML VIAL IVP STA ×2 (06:50→10:08)
[2019-09-16] MEDS ORDERED: ACETAMINOPHEN 1,000 MG/100 ML 100 ML IV STA (06:51)
--- NOTE | 2019-09-16 06:59 | ED Physician Documentation ---
PD HPI FEMALE - Stated complaint Stated Complaint: ABD PX - History obtained from History obtained from: Patient, Family - History of Present Illness Timing - onset: How many months ago (1) Timing - duration: Days (1) Timing - details: Still present Pain level max: 8 Associated symptoms: Pelvic pain, Vaginal pain. 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 She had slight bleeding for about 4 days but never passed any tissue that she was aware of. The estimated she was 6 to 7 weeks along when they discovered the mass in her pelvis. She is had pain off and on for which she was prescribed a few hydrocodone tablets but yesterday morning the pain started and has been getting progressively more severe to where it is now an 8 out of 10. She is taking 6 Tylenol through the day yesterday without any relief of the pain she is nauseous but no vomiting. Denies any prior abdominal surgeries. She has been followed by the OB with the following quant. Most recent quantitative hCG was 2 days ago at 75.48, down from >7,000 on Aug 15. Review of Systems Unable to obtain: Other (Acute pain) Constitutional: denies: Fever GI: reports: Abdominal Pain, Nausea. denies: Vomiting : reports: Other (Recent treatment with methotrexate for what was believed to be a failed, possible ectopic .) Neurologic: reports: Near syncope PD PAST MEDICAL HISTORY - Past Medical History Cardiovascular: Hypertension Respiratory: None Endocrine/Autoimmune: None GI: GERD - Past Surgical History Past Surgical History: No - Present Medications Home Medications: Ambulatory Orders Medication Instructions Recorded Confirmed Carvedilol [Coreg] 25 mg PO BID 01/21/19 01/21/19 Chlorthalidone 25 mg PO DAILY 01/21/19 01/21/19 hydrALAZINE [Apresoline] 25 mg ORAL BID 05/10/19 05/10/19 Potassium Chloride 20 meq PO DAILY 08/06/19 08/06/19 - Allergies Allergies/Adverse Reactions: Allergies Allergy/AdvReac Type Severity Reaction Status Date / Time shrimp Allergy Unknown Verified 08/17/19 19:16 - Social History Does the pt smoke?: No Smoking Status: Never smoker Does the pt drink ETOH?: No Does the pt have substance abuse?: No - Immunizations Immunizations are current?: Yes - POLST Patient has POLST: No PD ED PE NORMAL - Vitals Vital signs reviewed: Yes - General General: Alert and oriented X 3, Well developed/nourished, Other (39-year-old woman who is mildly diaphoretic laying on her back grimacing and occasionally writhing in pain.) - HEENT HEENT: Atraumatic, PERRL - Cardiac Cardiac: RRR, No murmur - Respiratory Respiratory: No respiratory distress, Clear bilaterally - Abdomen Abdomen: Normal bowel sounds, Other (There is guarding and rebound in the lower quadrants bilaterally.) - Female Female : Deferred - Derm Derm: Normal color, No rash. No: Warm and dry (Slight diaphoresis) - Neuro Neuro: No motor deficit, No sensory deficit, Normal speech Results - Vitals Vitals: Vital Signs - 24 hr 09/16/19 09/16/19 09/16/19 10:07 11:21 14:57 Temperature 36.6 C Heart Rate 71 76 74 Heart Rate [ Brachial] Respiratory 16 18 15 Rate Blood Pressure 132/95 H 149/125 H 110/72 Blood Pressure [Right Brachial artery] O2 Saturation 97 100 100 09/16/19 09/16/19 09/16/19 15:00 15:05 15:15 Temperature 36.5 C Heart Rate 73 76 80 Heart Rate [ Brachial] Respiratory 15 15 15 Rate Blood Pressure 120/74 113/74 121/76 Blood Pressure [Right Brachial artery] O2 Saturation 100 100 100 09/16/19 09/16/19 09/16/19 15:20 15:30 15:35 Temperature 36.5 C Heart Rate 73 75 72 Heart Rate [ Brachial] Respiratory 15 15 15 Rate Blood Pressure 123/83 H 121/84 H 129/90 H Blood Pressure [Right Brachial artery] O2 Saturation 98 99 100 09/16/19 09/16/19 09/16/19 15:50 16:02 16:24 Temperature 36.4 C L 36.5 C Heart Rate Heart Rate [ 72 70 71 Brachial] Respiratory 16 16 17 Rate Blood Pressure Blood Pressure 125/81 H 128/77 128/83 H [Right Brachial artery] O2 Saturation 97 98 96 09/16/19 09/16/19 16:36 18:30 Temperature 36.6 C Heart Rate Heart Rate [ 78 74 Brachial] Respiratory 18 Rate Blood Pressure Blood Pressure 125/79 114/74 [Right Brachial artery] O2 Saturation 95 96 Oxygen O2 Source Room air - Labs Labs: Laboratory Tests 09/16/19 09/16/19 09/16/19 06:58 06:58 06:58 WBC 12.1 H RBC 4.82 Hgb 14.7 Hct 43.8 MCV 90.9 MCH 30.5 MCHC 33.6 RDW 12.3 Plt Count 382 MPV 10.0 Neut # (Auto) 8.4 H Lymph # (Auto) 2.7 [place] # (Auto) 0.8 Eos # (Auto) 0.2 Baso # (Auto) 0.1 Absolute Nucleated RBC 0.00 Nucleated RBC % 0.0 Sodium 135 Potassium 4.0 Chloride 103 Carbon Dioxide 20 L Anion Gap 12.0 BUN 12 Creatinine 0.8 Estimated GFR (MDRD) 98 Glucose 119 H Calcium 10.0 Total Bilirubin 0.7 AST 22 ALT 20 Alkaline Phosphatase 47 Total Protein 8.8 H Albumin 4.7 Globulin 4.1 Albumin/Globulin Ratio 1.1 Lipase 40 HCG, Quant 42.66 Urine Color Urine Clarity Urine pH Ur Specific [place] Urine Protein Urine Glucose (UA) Urine Ketones Urine Occult Blood Urine Nitrite Urine Bilirubin Urine Urobilinogen Ur Leukocyte Esterase Ur Microscopic Review Urine Culture Comments Blood Type Antibody Screen 09/16/19 09/16/19 09:30 09:40 WBC RBC Hgb Hct MCV MCH MCHC RDW Plt Count MPV Neut # (Auto) Lymph # (Auto) [place] # (Auto) Eos # (Auto) Baso # (Auto) Absolute Nucleated RBC Nucleated RBC % Sodium Potassium Chloride Carbon Dioxide Anion Gap BUN Creatinine Estimated GFR (MDRD) Glucose Calcium Total Bilirubin AST ALT Alkaline Phosphatase Total Protein Albumin Globulin Albumin/Globulin Ratio Lipase HCG, Quant Urine Color YELLOW Urine Clarity CLEAR Urine pH 6.5 Ur Specific [place] 1.010 Urine Protein NEGATIVE Urine Glucose (UA) NEGATIVE Urine Ketones NEGATIVE Urine Occult Blood NEGATIVE Urine Nitrite NEGATIVE Urine Bilirubin NEGATIVE Urine Urobilinogen 0.2 (NORMAL) Ur Leukocyte Esterase NEGATIVE Ur Microscopic Review NOT INDICATED Urine Culture Comments NOT INDICATED Blood Type O POSITIVE Antibody Screen NEGATIVE PD MEDICAL DECISION MAKING - ED course Complexity details: reviewed old records, reviewed results, re-evaluated patient, d/w patient, d/w family, d/w [employer] consultant ED course: 1008: Patient was initially given Dilaudid 2 mg and a total liter of saline as well as Zofran. She was continuing to have 6 out of 10 pain. She went to the ultrasound where the previously identified mass was seen again however seem to be larger and very heterogeneous consistent with a ruptured ectopic and blood clot associated with that. Immediately upon hearing that result I contacted Dr. Bermudez who is on-call for OB and the patient was given another 4 mg of morphine as well as another 4 of Zofran. She is left n.p.o. Results were discussed with her and her [id number] at the bedside. 1230: Patient has been evaluated by Dr. Bermudez and the decision has been made to go to the operating room however she still in the emergency department awaiting operating room availability. She was started complaining of more pain and nausea. Of written for morphine and Compazine. Departure - Departure Disposition: ED Place in Observation Clinical Impression: Ectopic Qualifiers: Location of ectopic : unspecified location Intrauterine status: without intrauterine Qualified Code(s): O00.90 - Unspecified ectopic without intrauterine Condition: Good Discharge Date/Time: 09/16/19 12:45
[2019-09-16 07:13] LABS: BASOPHILS # (AUTO) 0.1 10^3/uL (0.0-0.1); BASOPHILS % (AUTO) 0.5 %; EOSINOPHILS # (AUTO) 0.2 10^3/uL (0.0-0.7); HGB - HEMOGLOBIN 14.7 g/dL (12.0-16.0); LYMPHOCYTES # (AUTO) 2.7 10^3/uL (1.5-3.5); LYMPHOCYTES % (AUTO) 21.9 %; MEAN CORPUSCULAR HEMOGLOBIN 30.5 pg (27.0-31.0); MEAN CORPUSCULAR HGB CONC 33.6 g/dL (32.0-36.0); MEAN CORPUSCULAR VOLUME 90.9 fL (81.0-99.0); MONOCYTES # (AUTO) 0.8 10^3/uL (0.0-1.0); MONOCYTES % (AUTO) 6.2 %; NEUTROPHILS # (AUTO) 8.4 10^3/uL (1.5-6.6); PLT - PLATELET COUNT 382 10^3/uL (130-450); RED BLOOD COUNT 4.82 10^6/uL (4.20-5.40); RED CELL DISTRIBUTION WIDTH 12.3 % (12.0-15.0); WHITE BLOOD COUNT 12.1 x10^3/uL (4.8-10.8)
[2019-09-16 07:27] LABS: ALBUMIN 4.7 g/dL (3.2-5.5); ALBUMIN/GLOBULIN RATIO 1.1 (1.0-2.2); BILIRUBIN,TOTAL 0.7 mg/dL (0.2-1.0); CREATININE 0.8 mg/dL (0.4-1.0); TOTAL PROTEIN 8.8 g/dL (6.7-8.2)
[2019-09-16 09:44] LABS: BILIRUBIN,URINE NEGATIVE (NEGATIVE); GLUCOSE, URINE (UA) NEGATIVE (NEGATIVE); KETONES,URINE (UA) NEGATIVE (NEGATIVE); LEUKOCYTE ESTERASE, URINE NEGATIVE (NEGATIVE); NITRITE,URINE NEGATIVE (NEGATIVE); OCCULT BLOOD,URINE NEGATIVE (NEGATIVE); PH,URINE 6.5 PH (5.0-7.5); PROTEIN,URINE NEGATIVE (NEGATIVE); UROBILINOGEN,URINE 0.2 (NORMAL) E.U./dL (NORMAL)
[2019-09-16 09:45] LABS: CLARITY,URINE CLEAR (CLEAR)
--- NOTE | 2019-09-16 10:05 | Ultrasound Report ---
Reason: pelvic pain Procedure Date: 09/16/2019 Accession Number: [id number] / [id number] Procedure: US - Pelvic w/Transvag+Doppler Ltd CPT Code: Final Report FULL RESULT: EXAM: PELVIC ULTRASOUND WITH DOPPLERS CLINICAL HISTORY: 39-year-old female with LMP 05/23/2019. Pelvic pain right greater than left for 1 month, worsening over the last day. Patient indicates ectopic last month. COMPARISON: OB FIRST TRIMESTER 08/15/2019 2:47 PM TECHNIQUE: Realtime transabdominal imaging performed to identify the uterus and adnexa and as an overview of other pelvic structures, followed by transvaginal imaging for better assessment of the endometrium and adnexa, with static image documentation. Color flow imaging and Doppler spectral analysis was performed to evaluate blood flow to the ovaries given pelvic pain. FINDINGS: Uterus: 8.0 x 4.1 x 4.4 cm, volume 76 cc. Anteverted position. Normal overall size and echotexture. Masses: 0.4 x 0.3 x 0.6 cm right anterior fundal hypoechoic intramural fibroid. Endometrium: 4 mm. Normal. Cervix: Small low cervical nabothian cyst. Trace fluid in the lower cervical canal. Right Ovary: 3.9 x 2.3 x 3.7 cm, volume 17 cc. Normal overall echotexture with small follicles. 0.6 x 0.5 x 0.4 cm hyperechoic focus within the right ovary, probably a corpus albicans. Arterial and venous blood flow are present. PSV 9 cm/sec. RI 0.7. Superiorly in the right adnexa, there is an approximate 3.1 x 2.9 x 3.4 cm heterogeneous area predominantly of mildly hyperechoic nature. Inferior to this structure in the right adnexa, there is a moderate amount of heterogeneous material which may reflect blood clot. Left Ovary: 3.6 x 2.4 x 3.1 cm, volume 14 cc. Normal echotexture. Arterial and venous blood flow are present. PSV 5 cm/sec. RI 0.6. Adnexa are unremarkable. Free Fluid: Moderate complex material/clotted blood in the rectouterine pouch and right adnexa. Other: None. IMPRESSION: 1. No intrauterine gestation is identified. 2. Approximately 3.1 x 2.9 x 3.4 cm heterogeneous profoundly hyperechoic area in the superior right adnexa separate from the ovary which may represent ectopic gestation. Previously, there was a 1.8 x 1.3 x 2.1 cm hypoechoic right adnexal area thought to represent an ectopic gestation. 3. Moderate amount of complex hypoechoic material suggesting clotted blood in the lower right adnexa and rectouterine pouch. Free fluid was not previously documented. RADIA The critical result notification system was initiated by Dr. Parish Dietrich at 09:57 AM on 09/16/2019. The above critical result findings were discussed with Dr. Ferrell by Dr. Parish Dietrich at 10:04 AM on 09/16/2019.
[2019-09-16] MEDS ORDERED: MORPHINE 2 MG/ML CARPUJECT IVP STA ×2 (10:08→12:31)
--- NOTE | 2019-09-16 11:41 | HISTORY & PHYSICAL EXAMINATION ---
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 MRSA Hx?: No Social & Family Hx - Social History Does the pt smoke?: No Smoking Status: Never smoker Does the pt drink ETOH?: No Does the pt have substance abuse?: No - POLST Patient has POLST: No Meds/Allgy - Home Medications Home Medications: Ambulatory Orders Medication Instructions Recorded Confirmed Carvedilol [Coreg] 25 mg PO BID 01/21/19 01/21/19 Chlorthalidone 25 mg PO DAILY 01/21/19 01/21/19 hydrALAZINE [Apresoline] 25 mg ORAL BID 05/10/19 05/10/19 Potassium Chloride 20 meq PO DAILY 08/06/19 08/06/19 - Allergies Allergies/Adverse Reactions: Allergies Allergy/AdvReac Type Severity Reaction Status Date / Time shrimp Allergy Unknown Verified 08/17/19 19:16 Exam - Vital Signs Reviewed Vital Signs: Yes Vital Signs: Vital Signs x48h Temp Pulse Resp BP Pulse Ox 09/16/19 11:21 76 18 149/125 H 100 09/16/19 10:07 71 16 132/95 H 97 09/16/19 09:29 98.2 F 60 16 130/99 H 97 09/16/19 07:30 79 24 132/96 H 100 09/16/19 07:08 69 14 140/97 H 98 09/16/19 07:03 97.7 F 89 14 140/97 H 100 - Physical Exam General Appearance: positive: Anxious Neck: positive: Nml inspection, Thyroid nml. negative: Thyromegaly Respiratory: positive: Breath sounds nml. negative: Wheezes, Rales Cardiovascular: positive: Regular rate & rhythm, No murmur, No gallop Peripheral Pulses: positive: 2+ Abdomen: positive: Tenderness (Throughout, worse in RLQ), Rebound (RLQ). negative: Mass Skin: positive: Color nml Extremities: positive: Non-tender, Nml appearance. negative: Calf tenderness Neurologic/Psychiatric: positive: CN's nml (2-12). negative: Mood/affect nml (appropriately sad and nervous) Results - Lab Results Lab results reviewed: Yes Fish Bones: 09/16/19 06:58 09/16/19 06:58 Other Lab Results: Lab Results x24hrs 09/16/19 09/16/19 09/16/19 Range/Units 09:40 09:30 06:58 WBC (4.8-10.8) x10^3/uL RBC (4.20-5.40) 10^6/uL Hgb (12.0-16.0) g/dL Hct (37.0-47.0) % MCV (81.0-99.0) fL MCH (27.0-31.0) pg MCHC (32.0-36.0) g/dL RDW (12.0-15.0) % Plt Count (130-450) 10^3/uL MPV (7.9-10.8) fL Neut # (Auto) (1.5-6.6) 10^3/uL Lymph # (Auto) (1.5-3.5) 10^3/uL [place] # (Auto) (0.0-1.0) 10^3/uL Eos # (Auto) (0.0-0.7) 10^3/uL Baso # (Auto) (0.0-0.1) 10^3/uL Absolute Nucleated RBC x10^3/uL Nucleated RBC % /100WBC Sodium (135-145) mmol/L Potassium (3.5-5.0) mmol/L Chloride (101-111) mmol/L Carbon Dioxide (21-32) mmol/L Anion Gap (6-13) BUN (6-20) mg/dL Creatinine (0.4-1.0) mg/dL Estimated GFR (MDRD) (>89) Glucose (70-100) mg/dL Calcium (8.5-10.3) mg/dL Total Bilirubin (0.2-1.0) mg/dL AST (10-42) IU/L ALT (10-60) IU/L Alkaline Phosphatase (42-121) IU/L Total Protein (6.7-8.2) g/dL Albumin (3.2-5.5) g/dL Globulin (2.1-4.2) g/dL Albumin/Globulin Ratio (1.0-2.2) Lipase (22-51) U/L HCG, Quant 42.66 mIU/mL Urine Color YELLOW Urine Clarity CLEAR (CLEAR) Urine pH 6.5 (5.0-7.5) PH Ur Specific [place] 1.010 (1.002-1.030) Urine Protein NEGATIVE (NEGATIVE) mg/dL Urine Glucose (UA) NEGATIVE (NEGATIVE) mg/dL Urine Ketones NEGATIVE (NEGATIVE) mg/dL Urine Occult Blood NEGATIVE (NEGATIVE) Urine Nitrite NEGATIVE (NEGATIVE) Urine Bilirubin NEGATIVE (NEGATIVE) Urine Urobilinogen 0.2 (NORMAL) (NORMAL) E.U./dL Ur Leukocyte Esterase NEGATIVE (NEGATIVE) Ur Microscopic Review NOT INDICATED Urine Culture Comments NOT INDICATED Blood Type O POSITIVE Antibody Screen NEGATIVE 09/16/19 09/16/19 Range/Units 06:58 06:58 WBC 12.1 H (4.8-10.8) x10^3/uL RBC 4.82 (4.20-5.40) 10^6/uL Hgb 14.7 (12.0-16.0) g/dL Hct 43.8 (37.0-47.0) % MCV 90.9 (81.0-99.0) fL MCH 30.5 (27.0-31.0) pg MCHC 33.6 (32.0-36.0) g/dL RDW 12.3 (12.0-15.0) % Plt Count 382 (130-450) 10^3/uL MPV 10.0 (7.9-10.8) fL Neut # (Auto) 8.4 H (1.5-6.6) 10^3/uL Lymph # (Auto) 2.7 (1.5-3.5) 10^3/uL [place] # (Auto) 0.8 (0.0-1.0) 10^3/uL Eos # (Auto) 0.2 (0.0-0.7) 10^3/uL Baso # (Auto) 0.1 (0.0-0.1) 10^3/uL Absolute Nucleated RBC 0.00 x10^3/uL Nucleated RBC % 0.0 /100WBC Sodium 135 (135-145) mmol/L Potassium 4.0 (3.5-5.0) mmol/L Chloride 103 (101-111) mmol/L Carbon Dioxide 20 L (21-32) mmol/L Anion Gap 12.0 (6-13) BUN 12 (6-20) mg/dL Creatinine 0.8 (0.4-1.0) mg/dL Estimated GFR (MDRD) 98 (>89) Glucose 119 H (70-100) mg/dL Calcium 10.0 (8.5-10.3) mg/dL Total Bilirubin 0.7 (0.2-1.0) mg/dL AST 22 (10-42) IU/L ALT 20 (10-60) IU/L Alkaline Phosphatase 47 (42-121) IU/L Total Protein 8.8 H (6.7-8.2) g/dL Albumin 4.7 (3.2-5.5) g/dL Globulin 4.1 (2.1-4.2) g/dL Albumin/Globulin Ratio 1.1 (1.0-2.2) Lipase 40 (22-51) U/L HCG, Quant mIU/mL Urine Color Urine Clarity (CLEAR) Urine pH (5.0-7.5) PH Ur Specific [place] (1.002-1.030) Urine Protein (NEGATIVE) mg/dL Urine Glucose (UA) (NEGATIVE) mg/dL Urine Ketones (NEGATIVE) mg/dL Urine Occult Blood (NEGATIVE) Urine Nitrite (NEGATIVE) Urine Bilirubin (NEGATIVE) Urine Urobilinogen (NORMAL) E.U./dL Ur Leukocyte Esterase (NEGATIVE) Ur Microscopic Review Urine Culture Comments Blood Type Antibody Screen Impression/Plan - Problem List Problem List: Ruptured ectopic CC: pain HPI: has been undergoing tx for of unknown location. Received MTX and then has been following HCG's. Had a pain flare on Tue, has been intermittent, took tylenol, pain was generalized. Then on Tue the pain became severe, took norco, pain localized to RLQ. Pain much worse now than it was when the abnormal was diagnosed. Pain on arrival to ER was 10/10. Current pain 6/10 after IV narcotics. A bit nauseated. PMH: HTN, hypokalemia (resolved with discontinuation chlorathalizine), GERD, obesity, hyperlipdemia PSH: neg Meds: Spironolactone 50mg daily, carvedilol 25mg bid, omeprazole 20mg po daily, hydralazine 25mg bid Allergies: NKDA. Chlorthalazines cause significant hypokalemia, shrimp causes rash but no airway problems. SH: no t/e/d. Partner is deployed. Mother in law is at bedside. OB: G1=current ROS: no fevers, no URI sx. O: see above. Rh+, Hct 42 Hcg 7363 on 08/08 ----->291 9d ago-->75 2d ago-->42 today A/P: 39yo G1 with right ectopic , appears ruptured by US. Initial treatment was on 08/17 with methotrexate given due to HCG >7000, no IUP, and a complex 2cm mass behind the uterus, minimal free fluid. 7d later her HCG had appropriately fallen to 3684. HCGs had continued to fall. Now with flare in bleeding, persistent mass, new free fluid at the uterine fundus (peritoneal side), and a surgical abdomen. Discussed that it is time for surgical management due to the surgical abdomen and bleeding. Alternatives of no treatment or repeat methotrexate were discussed but not recommended. Surgery and recovery were reviewed. Risks including bleeding, infection, trauma to local organs, anesthesia problems, and failure to cure were discussed. All questions answered and consent signed. To OR shortly.
--- NOTE | 2019-09-16 12:05 | ANESTHESIA ---
Pre-Anesthesia VS, & Labs - Diagnosis ectopic - Procedure laparoscopic treatment of ectopic , salphingectomy, d and c Vital Signs: Temp Pulse Resp BP Pulse Ox 36.8 C 76 18 149/125 H 100 09/16/19 09:29 09/16/19 11:21 09/16/19 11:21 09/16/19 11:21 09/16/19 11:21 Height 5 ft 5 in Weight (kg) 70.307 kg Body Mass Index 25.7 - NPO >8 hours - Is Patient ?: Yes - Lab Results Current Lab Results: Laboratory Tests 09/16/19 09:40: Blood Type O POSITIVE, Antibody Screen NEGATIVE 09/16/19 06:58: HCG, Quant 42.66 09/16/19 06:58: Sodium 135, Potassium 4.0, Chloride 103, Carbon Dioxide 20 L, Anion Gap 12.0, BUN 12, Creatinine 0.8, Estimated GFR (MDRD) 98, Glucose 119 H, Calcium 10.0, Total Bilirubin 0.7, AST 22, ALT 20, Alkaline Phosphatase 47, Total Protein 8.8 H, Albumin 4.7, Globulin 4.1, Albumin/Globulin Ratio 1.1, Lipase 40 09/16/19 06:58: WBC 12.1 H, RBC 4.82, Hgb 14.7, Hct 43.8, MCV 90.9, MCH 30.5, MCHC 33.6, RDW 12.3, Plt Count 382, MPV 10.0, Neut # (Auto) 8.4 H, Lymph # (Auto) 2.7, [place] # (Auto) 0.8, Eos # (Auto) 0.2, Baso # (Auto) 0.1, Absolute Nucleated RBC 0.00, Nucleated RBC % 0.0 Fish Bones: 09/16/19 06:58 09/16/19 06:58 Home Medications and Allergies Carvedilol [Coreg] 25 mg PO BID 01/21/19 Chlorthalidone 25 mg PO DAILY 01/21/19 hydrALAZINE [Apresoline] 25 mg ORAL BID 05/10/19 Potassium Chloride 20 meq PO DAILY 08/06/19 Allergies/Adverse Reactions: Allergies Allergy/AdvReac Type Severity Reaction Status Date / Time shrimp Allergy Unknown Verified 08/17/19 19:16 Anes History & Medical History - Anesthetic History Anesthesia Complications: reports: No previous complications Family history of Anesthesia Complications: Denies Family history of Malignant Hyperthermia: Denies - Medical History Cardiovascular: reports: Hypertension Pulmonary: reports: None Gastrointestinal: reports: GERD Endocrine/Autoimmune: reports: None Smoking Status: Never smoker Exam General: Alert Dental: WNL Mallampati classification: III Thyromental Distance: greater than 6 cm Cardiovascular: Regular rate, Normal S1, Normal S2 Mental/Cognitive Status: Alert/Oriented X3 Plan Anesthesia Type: General Consent for Procedure(s) Verified and Reviewed: Yes Code Status: Attempt Resuscitation ASA classification: 2-Mild systemic disease Is this case an emergency?: Yes
[2019-09-16] MEDS ORDERED: LIDOCAINE MPF 2%-EPI 1:200000 20 ML VIAL ONE (12:21)
[2019-09-16] MEDS ORDERED: BUPIVACAINE 0.5% PF 30 ML VIAL ONE (12:22)
[2019-09-16] MEDS ORDERED: PROCHLORPERAZINE 10 MG/2 ML VIAL IVP PRN (12:32)
[2019-09-16] MEDS ORDERED: METOCLOPRAMIDE 10 MG/2 ML VIAL IVP ONE (12:43)
[2019-09-16] MEDS ORDERED: DEXAMETHASONE 4 MG/ML VIAL IVP ONE (12:43)
[2019-09-16] MEDS ORDERED: ONDANSETRON 4 MG/2 ML VIAL IVP ONE (12:43)
[2019-09-16] MEDS ORDERED: PROPOFOL 200 MG/20 ML VIAL IVP ONE (12:43)
[2019-09-16] MEDS ORDERED: fentaNYL 100 MCG/2 ML VIAL IVP ONE (12:43)
[2019-09-16] MEDS ORDERED: LIDOCAINE-MPF 2% 5 ML VIAL IM ONE (12:43)
[2019-09-16] MEDS ORDERED: MIDAZOLAM 2 MG/2 ML VIAL IVP ONE (12:43)
[2019-09-16] MEDS ORDERED: SUGAMMADEX 200 MG/2 ML VIAL IVP ONE ×2 (12:43→14:29)
[2019-09-16] MEDS ORDERED: ACETAMINOPHEN 1,000 MG/100 ML 100 ML IV ONE (12:43)
[2019-09-16] MEDS ORDERED: LACTATED RINGERS 1,000 ML IV ONE ×3 (12:43→15:38)
[2019-09-16] MEDS ORDERED: ROCURONIUM 50 MG/5 ML VIAL IVP ONE (12:43)
[2019-09-16] MEDS ORDERED: KETOROLAC 30 MG/ML VIAL IVP ONE (12:43)
[2019-09-16] MEDS ORDERED: LIDOCAINE MPF 2%-EPI 1:200000 20 ML VIAL SUBQ ONE ×2 (14:30)
[2019-09-16] MEDS ORDERED: BUPIVACAINE 0.5% PF 30 ML VIAL INFIL ONE ×2 (14:31)
[2019-09-16] MEDS ORDERED: HYDROmorphone 0.5 MG/0.5 ML SYRINGE IVP PRN (15:00)
[2019-09-16] MEDS ORDERED: ONDANSETRON 4 MG/2 ML VIAL IVP PRN (15:00)
[2019-09-16] MEDS ORDERED: oxyCODONE 5 MG TABLET PO PRN (15:00)
--- NOTE | 2019-09-16 15:00 | OPERATIVE REPORT ---
Operative Report - General Procedure Date: 09/16/19 Planned Procedure: D&C, diagnostic LSC, salpingectomy vs. salpingotomy likely of right fallopian tube Pre-Op Diagnosis: ruptured right ectopic Procedure Performed: diagnostic LSC, right salpingectomy - Procedure Note Primary Surgeon: delmar Anesthesia Technique: General ET tube Pathology: right fallopian tube IV Fluids (mL): 1,800 Estimated Blood Loss (mL): 10 Findings: Right fallopian tube adherent to sigmoid colon. Left fallopian tube looks slightly dilated but normal fimbrae seen. Right ovary adherent to pelvic sidewall. Normal appearing liver, ovaries, and cul de sac.
--- NOTE | 2019-09-16 15:16 | Discharge Plan ---
Discharge Plan Problem Reviewed?: Yes Disposition: Home, Self Care Condition: Good Diet: Regular Activity Restrictions: No lifting more than 10 lbs for 4w Shower Restrictions: Yes (not for 24 hours) Driving Restrictions: Yes (not while on norco or oxycodone) No Smoking: If you smoke, Please STOP! Call for help. Follow-up with: DIONNA YU MD, PHD [Physician No Access] - 1 Week
[2019-09-16 19:04] VITALS: BP 114/74
--- NOTE | 2019-09-16 22:38 | OPERATIVE REPORT ---
DATE OF SERVICE: 09/16/2019 Physician: Jane Bermudez MD PREOPERATIVE DIAGNOSIS: Ruptured right ectopic . POSTOPERATIVE DIAGNOSIS: Ruptured right ectopic . PROCEDURE PERFORMED: Laparoscopic right salpingectomy. SURGEON: Jane Bermudez MD ATTORNEY LAW CLERK: None. ESTIMATED BLOOD LOSS: 10 mL. INTRAVENOUS FLUIDS: 1800 mL. URINE OUTPUT: Not applicable. ANESTHESIA: General. COUNTS: Correct x2. COMPLICATIONS: None apparent. DISPOSITION: Stable to the recovery room. PROPHYLAXIS: SCDs to bilateral lower extremities. SPECIMENS: Right fallopian tube to pathology. FINDINGS: The right fallopian tube was very enlarged and the same diameter of the uterus. The fimbr iated end was adherent to the sigmoid colon. The right ovary was adherent to the pelvic sidewall. T he left ovary was free and appeared normal. The left fallopian tube looked a bit dilated, but it had normal fimbria. The cul-de-sac was normal. No evidence of endometriosis was present. Normal liver margin and stomach. COUNSELING: Please see the History and Physical for counseling details, but the patient presented wi th a known ectopic to the emergency room with increasing abdominal pain. She had continued to experience a good drop in her hCG quantitative levels after receiving methotrexate. However, she had a pain flare in the past few days and now it is severe and unrelenting. An ultrasound revealed a complex right adnexal mass, an empty uterus, and free fluid surrounding the uterus. The patient wa s counseled for possible salpingostomy or salpingectomy. As her had been of a questionable location, I also counseled her for a dilation and curettage for exact localization. DESCRIPTION OF PROCEDURE: The patient was brought to the operating room, where she was induced with general anesthesia. Please note that her intubation was quite difficult due to a thick neck, [T VERENA: 03:18], poor mouth opening, and anterior vocal cord position. Please see anesthesia notes. She [facility]. Her arms were tucked to the sides bilaterally. B imanual examination of the uterus alone revealed an axial uterus. She was prepped with chlorhexidine vaginally because of a history of rashes with shrimp ingestion. She is otherwise prepped and draped in the usual sterile fashion. A speculum was placed and a single-tooth tenaculum was applied to the anterior lip of the cervix. Then, 10 mL of 2% lidocaine mixed with 0.5% Marcaine with epinephrine w ere injected for a paracervical block. This was divided into 5 mL on both sides. I was not able to get into the internal cervical os using 3 mm dilators for a uterine sound. I did not want to create a false channel and the patient's pelvis had already undergone enough trauma. The decision was made not to put the uterine manipulator in the uterine cavity. Additionally, the dilation and curettage w as not performed. The tenaculum was left in place. The speculum was removed. The surgeon's gloves were changed. Laparoscopic incisions were performed with an [address] visualization. All of these incisions were numbed with the mix of Marcaine with lidocaine. All i nitial trocars were 5 mm in size. An incision was made in the inferior portion of the umbilicus. Th e abdominal tissue was tented upward and a 5 mm trocar was inserted into the peritoneal cavity. This was to test the carbon dioxide. Opening pressure was low and the abdomen was insufflated to a level of 15 mmHg. The upper abdomen was inspected and appeared normal. The pelvis had some free blood in it. Two 5 mm lateral trocars were placed about 4 cm inferior to and 8 cm lateral to the umbilicus o n each side. The patient was placed in Trendelenburg, and a suction sociology professor was used to identify t he anatomy as described above. The right fallopian tube was very distorted and ruptured. Therefore, the decision was made to perform a salpingectomy rather than a salpingostomy. The LigaSure was used to divide the fallopian tube from the mesosalpinx. The fallopian tube was divided from the uterus, about 0.5 cm away from the cornua. The tube was adherent to the sigmoid at its distal end, but these adhesions were broken down with blunt dissection. The 5 mm trocar in the umbilicus was replaced wit h an 11 mm, so that an Endobag could be used. The specimen was placed in the EndoCatch. The fascial incision needed to be extended. The contents of the bag were morcellated and removed through the um bilicus. Eventually, the entire specimen and bag came through the umbilical incision. The 11 mm tro car was replaced and the rest of the pelvis was examined. Of note, there was no endometriosis. The right ovary was adherent to the right pelvic sidewall and these extensive adhesions were not dissecte d. All possible blood was suctioned from her pelvis. Hemostasis was excellent over the area of diss ection. The lateral trocars were removed without any bleeding seen. The top of the umbilical trocar was removed and deep breaths were given to try to extrude as much carbon dioxide as possible from th e peritoneal cavity. The trocar was removed and the fascia was elevated with S retractors and closed with interrupted sutures of 0 Vicryl. The skin was closed with running subcuticular sutures of 4-0 Monocryl. The tenaculum was removed. The patient was returned to the supine position. She was awak ened and transported to the PACU without difficulties. TD: 09/16/2019 15:47
== END 2019-09-16 19:20 | disposition home or self-care (01) ==
LOC: ED 06:42 → SDS 11:00 → MS3 15:44 → SDS 19:20
PROVIDERS: ATTEND Obstetrics & Gynecology
PROC: 0UB54ZZ Excision of Right Fallopian Tube, Percutaneous Endoscopic Approach (ICD-10-PCS; 2019-09-16)
PROC: 10T24ZZ Resection of Products of Conception, Ectopic, Percutaneous Endoscopic Approach (ICD-10-PCS; principal; 2019-09-16 12:30)
DX: O00.90 Unspecified ectopic pregnancy without intrauterine pregnancy (principal); I10 Essential (primary) hypertension
CPT/HCPCS: 36415; 59151; 76830; 76856; 80053; 81003; 83690; 84702; 85025; 86850; 86900; 86901; 93976; 96365; 96375; 99285; J0131; J1170; J2765; J7120; 81001; 87086

== ENCOUNTER 2019-09-25 10:11 | Outpatient (CLI) | payer OTHER ==
[2019-09-25 18:58] LABS: HGB - HEMOGLOBIN 14.1 g/dL (12.0-16.0); MEAN CORPUSCULAR HEMOGLOBIN 29.3 pg (27.0-31.0); MEAN CORPUSCULAR HGB CONC 30.9 g/dL (32.0-36.0); MEAN PLATELET VOLUME 10.4 fL (7.9-10.8); RED BLOOD COUNT 4.81 10^6/uL (4.20-5.40); RED CELL DISTRIBUTION WIDTH 12.4 % (12.0-15.0); WHITE BLOOD COUNT 8.6 x10^3/uL (4.8-10.8)
[2019-09-25 19:12] LABS: CALCIUM 9.7 mg/dL (8.5-10.3); CREATININE 0.8 mg/dL (0.4-1.0)
[2019-09-25 19:35] LABS: THYROID STIMULATING HORMONE 1.06 uIU/mL (0.34-5.60)
[2019-09-25 19:37] LABS: FREE T4 (FREE THYROXINE) 0.95 ng/dL (0.58-1.64)
[2019-09-25 19:41] LABS: PROLACTIN 6.12 ng/mL
[2019-09-25 19:43] LABS: HB2 TOTAL 14.7 g/dL; HEMOGLOBIN A1C 0.55 g/dL; HEMOGLOBIN A1C % 5.6 % (4.6-6.2)
== END 2019-09-25 23:59 | disposition home or self-care (01) ==
LOC: LAB.WCP 10:11
PROVIDERS: ATTEND Obstetrics & Gynecology
DX: N92.6 Irregular menstruation, unspecified (principal); Z87.59 Personal history of other complications of pregnancy, childbirth and the puerperium; E87.6 Hypokalemia
CPT/HCPCS: 36415; 80048; 83036; 84146; 84403; 84439; 84443; 84702; 85027

== ENCOUNTER 2019-10-10 08:00 | Outpatient (CLI) | payer OTHER ==
[2019-10-10 14:59] LABS: BILIRUBIN,URINE NEGATIVE (NEGATIVE); GLUCOSE, URINE (UA) NEGATIVE (NEGATIVE); KETONES,URINE (UA) NEGATIVE (NEGATIVE); LEUKOCYTE ESTERASE, URINE TRACE (NEGATIVE); NITRITE,URINE NEGATIVE (NEGATIVE); OCCULT BLOOD,URINE NEGATIVE (NEGATIVE); PH,URINE 6.5 PH (5.0-7.5); PROTEIN,URINE NEGATIVE (NEGATIVE); UROBILINOGEN,URINE 0.2 (NORMAL) E.U./dL (NORMAL)
[2019-10-10 15:20] LABS: BACTERIA,URINE None Seen /HPF (None Seen); CLARITY,URINE CLEAR (CLEAR); RBC,URINE None Seen /HPF (0-5); SQUAMOUS EPITHELIAL CELL,UR MOD Squamous (<= Few)
[2019-10-10 20:36] LABS: CANDIDA GROUP DNA NEGATIVE (NEGATIVE); CANDIDA KRUSEI DNA NEGATIVE (NEGATIVE); TRICHOMONAS VAGINALIS DNA NEGATIVE (NEGATIVE)
[2019-10-10 21:55] LABS: TRICHOMONAS VAGINALIS DNA NEGATIVE (NEGATIVE)
== END 2019-10-10 23:59 | disposition home or self-care (01) ==
LOC: LAB.R 08:00
PROVIDERS: ATTEND Obstetrics & Gynecology
DX: R30.0 Dysuria (principal); Z11.3 Encounter for screening for infections with a predominantly sexual mode of transmission
CPT/HCPCS: 81001; 87086; 87491; 87591; 87661; 87801

== ENCOUNTER 2020-03-21 14:27 | Outpatient (CLI) | payer OTHER ==
--- NOTE | 2020-03-21 15:35 | XRAY Report ---
Reason: POSITIVE PPD Procedure Date: 03/21/2020 Accession Number: [id number] / [id number] Procedure: WCP - Chest 2 View X-Ray CPT Code: 72130 Final Report FULL RESULT: PROCEDURE: Chest 2 View X-Ray INDICATIONS: POSITIVE PPD TECHNIQUE: 2 view(s) of the chest. COMPARISON: None. FINDINGS: Surgical changes and devices: None. Lungs and pleura: No pleural effusions or pneumothorax. Lungs are clear. Mediastinum: Mediastinal contours are normal. Heart size is normal. Bones and chest wall: No suspicious bony abnormalities. Soft tissues appear unremarkable. IMPRESSION: No acute pulmonary process. Reviewed by: Karla Craig MD on 03/21/2020 3:33 PM PDT Approved by: aKrla Craig MD on 03/21/2020 3:33 PM PDT Station ID: [id number]
== END 2020-03-21 23:59 | disposition home or self-care (01) ==
LOC: DI.WCP 14:27
PROVIDERS: ATTEND Family Medicine
DX: R76.11 Nonspecific reaction to tuberculin skin test without active tuberculosis (principal)
CPT/HCPCS: 71046

== ENCOUNTER 2020-06-21 07:15 | Outpatient (CLI) | payer OTHER ==
--- NOTE | 2020-06-23 09:20 | MRI Report ---
PROCEDURE: Brain W/O INDICATIONS: HEADACHE TECHNIQUE: Noncontrast axial T1 spin echo, axial T2 fast spin echo, sagittal and axial FLAIR, coronal T2 fast sp in echo, axial gradient echo, axial diffusion and ADC through the brain. COMPARISON: None. FINDINGS: Image quality: Excellent. CSF Spaces: Basal cisterns are patent. No extra-axial fluid collections. Ventricles are normal in size and shape. Brain: No intracranial masses or hemorrhage. Bhatia/white matter interface is normal. Brainstem appe ars normal. Diffusion-weighted images demonstrate no acute ischemic insult. No chronic ischemic ins ults. Normal intravascular flow voids are present. Skull and face: Calvarium has normal marrow signal. Orbits appear normal. Sinuses: Sinuses and mastoids are clear. IMPRESSION: 1. No acute intracranial disease process. 2. No abnormal intracranial mass or mass effect. 3. No acute or chronic intracranial hemorrhage. Reviewed by: Jo Huber MD, PhD on 06/23/2020 9:18 AM PDT Approved by: Jo Huber MD, PhD on 06/23/2020 9:18 AM PDT Station ID: [id number]
== END 2020-06-21 07:16 | disposition home or self-care (01) ==
LOC: DI 07:15
PROVIDERS: ATTEND Family Medicine
DX: R51.9 Headache, unspecified (principal)
CPT/HCPCS: 70551

== ENCOUNTER 2020-07-11 08:00 | Outpatient (CLI) | payer BC, OTHER | END 2020-07-11 08:01 | disposition home or self-care (01) | LOC: LAB.WCP 08:00 | PROVIDERS: ATTEND Family Medicine | DX: Z87.59 Personal history of other complications of pregnancy, childbirth and the puerperium (principal); I10 Essential (primary) hypertension | CPT/HCPCS: 36415; 82088; 84244; 84702 ==

== ENCOUNTER 2020-08-02 11:18 | Outpatient (CLI) | payer BC, OTHER ==
--- NOTE | 2020-08-02 16:09 | Ultrasound Report ---
PROCEDURE: Arterial Visceral Complete INDICATIONS: BENIGN ESSENTIAL HTN TECHNIQUE: Real time scanning was performed of both kidneys, followed by Color and pulsed Doppler in terrogation of the renal vessels. COMPARISON: None FINDINGS: Aortic peak systolic velocity: 122 cm/s. Right side: Bhatia-scale imaging: Kidney is 11.7 cm long; renal cortical thickness is 1.5 cm. No hydronephrosis. No nephrolithiasis. Renal cortex is normal in echogenicity. No suspicious solid renal masses. Proximal renal artery peak systolic velocity: 138 cm/s. Mid renal artery peak systolic velocity: 79 cm/s. Distal renal artery peak systolic velocity: 69 cm/s. Renal vein: Patent, without thrombus. Peak renal/aortic ratio (RAR): 1.1 Left side: Bhatia-scale imaging: Kidney is 11.3 cm long; renal cortical thickness is 1.4 cm. No hydronephrosis. A 9 mm nonobstructing left kidney calculus can be seen. Renal cortex is normal in echogenicity. No s uspicious solid renal masses. Proximal renal artery peak systolic velocity: 89 cm/s. Mid-renal artery peak systolic velocity: 58 cm/s. Distal renal artery peak systolic velocity: 44 cm/s. Renal vein: Patent, without thrombus. Peak renal/aortic ratio (RAR): 0.7 IMPRESSION: No findings of renal artery stenosis are seen. Nonobstructing left kidney stone incidentally noted. Reviewed by: Gerhard Majano MD on 08/02/2020 3:08 PM [facility] Approved by: Gerhard Majano MD on 08/02/2020 3:08 PM [facility] Station ID: [id number]
== END 2020-08-02 11:19 | disposition home or self-care (01) ==
LOC: DI 11:18
PROVIDERS: ATTEND Family Medicine
DX: I10 Essential (primary) hypertension (principal)
CPT/HCPCS: 93975

== ENCOUNTER 2020-10-03 08:40 | Outpatient (CLI) | payer BC, OTHER ==
[2020-10-03 12:06] LABS: BASOPHILS # (AUTO) 0.1 10^3/uL (0.0-0.1); BASOPHILS % (AUTO) 0.7 %; EOSINOPHILS # (AUTO) 0.2 10^3/uL (0.0-0.7); EOSINOPHILS % (AUTO) 2.9 %; HGB - HEMOGLOBIN 13.7 g/dL (12.0-16.0); LYMPHOCYTES # (AUTO) 1.7 10^3/uL (1.5-3.5); LYMPHOCYTES % (AUTO) 25.3 %; MEAN CORPUSCULAR HEMOGLOBIN 29.6 pg (27.0-31.0); MEAN CORPUSCULAR HGB CONC 31.9 g/dL (32.0-36.0); MEAN CORPUSCULAR VOLUME 92.9 fL (81.0-99.0); MEAN PLATELET VOLUME 10.7 fL (7.9-10.8); MONOCYTES # (AUTO) 0.5 10^3/uL (0.0-1.0); MONOCYTES % (AUTO) 7.2 %; NEUTROPHILS # (AUTO) 4.4 10^3/uL (1.5-6.6); NEUTROPHILS % (AUTO) 63.8 %; PLT - PLATELET COUNT 375 10^3/uL (130-450); RED BLOOD COUNT 4.63 10^6/uL (4.20-5.40); RED CELL DISTRIBUTION WIDTH 12.2 % (12.0-15.0); WHITE BLOOD COUNT 6.8 x10^3/uL (4.8-10.8)
[2020-10-03 12:46] LABS: ALBUMIN 4.4 g/dL (3.2-5.5); ALBUMIN/GLOBULIN RATIO 1.4 (1.0-2.2); BILIRUBIN,TOTAL 0.9 mg/dL (0.2-1.0); CALCIUM 9.3 mg/dL (8.5-10.3); CREATININE 0.7 mg/dL (0.4-1.0); TOTAL PROTEIN 7.5 g/dL (6.7-8.2)
[2020-10-03 13:17] LABS: PROLACTIN 11.69 ng/mL
[2020-10-03 13:46] LABS: HEMOGLOBIN A1c% 5.1 % (4.27-6.07)
== END 2020-10-03 23:59 | disposition home or self-care (01) ==
LOC: LAB.WCP 08:40
PROVIDERS: ATTEND Obstetrics & Gynecology
DX: N92.6 Irregular menstruation, unspecified (principal); Z31.69 Encounter for other general counseling and advice on procreation; R73.01 Impaired fasting glucose
CPT/HCPCS: 36415; 80053; 81599; 82306; 82670; 83036; 83498; 83520; 84146; 84403; 84443; 85025; 86762; 86787

== ENCOUNTER 2020-10-23 08:00 | Outpatient (CLI) | payer BC, OTHER | END 2020-10-23 23:59 | disposition home or self-care (01) | LOC: LAB.WCP 08:00 | PROVIDERS: ATTEND Obstetrics & Gynecology | DX: N92.6 Irregular menstruation, unspecified (principal); Z31.69 Encounter for other general counseling and advice on procreation; Z71.89 Other specified counseling | CPT/HCPCS: 36415; 84144 ==

== ENCOUNTER 2020-10-27 07:00 | Outpatient (CLI) | payer BC, OTHER | END 2020-10-27 23:59 | disposition home or self-care (01) | LOC: COV 07:00 | PROVIDERS: ATTEND Surgery | DX: Z01.812 Encounter for preprocedural laboratory examination (principal); K21.9 Gastro-esophageal reflux disease without esophagitis; Z20.822 Contact with and (suspected) exposure to COVID-19 ==

== ENCOUNTER 2020-10-28 07:00 | Outpatient (CLI) | payer BC, OTHER | END 2020-10-28 23:59 | disposition home or self-care (01) | LOC: LAB.WCP 07:00 | PROVIDERS: ATTEND Obstetrics & Gynecology | DX: N92.6 Irregular menstruation, unspecified (principal) | CPT/HCPCS: 36415; 83001 ==

== ENCOUNTER 2020-10-30 09:30 | Day surgery (SDC) | payer BC, OTHER ==
[2020-10-30] MEDS ORDERED: LACTATED RINGERS 1,000 ML IV ONE ×2 (09:39→10:41)
[2020-10-30 09:52] LABS: HCG UR QUAL NEGATIVE
--- NOTE | 2020-10-30 10:19 | ANESTHESIA ---
Pre-Anesthesia VS, & Labs - Diagnosis GERD - Procedure EGD Vital Signs: Temp Pulse Resp BP Pulse Ox 35.9 C L 75 16 131/94 H 97 10/30/20 09:42 10/30/20 09:42 10/30/20 09:42 10/30/20 09:42 10/30/20 09:42 Height: 5 ft 8 in Weight (kg): 85 kg Body Mass Index: 28.5 BMI Classification: Overweight - NPO >8 hours - Is Patient ?: No Home Medications and Allergies Home Medications: Ambulatory Orders Labetalol [Trandate] 100 mg PO BID 10/29/20 Methyldopa 250 mg PO BID 10/29/20 hydrALAZINE [Apresoline] 25 mg ORAL BID 05/10/19 Labetalol [Trandate] 100 mg PO BID 10/29/20 Methyldopa 250 mg PO BID 10/29/20 Anes History & Medical History - Medical History Cardiovascular: reports: Hypertension Pulmonary: reports: None Gastrointestinal: reports: GERD Urinary: reports: None Musculoskeletal: reports: None Endocrine/Autoimmune: reports: None Skin: reports: None Smoking Status: Never smoker - Surgical History Gynecologic: reports: Oophrectomy Exam Mouth Openin Fingerbreadth Neck Mobility: Normal Mallampati classification: II Thyromental Distance: 4-6 cm Plan Anesthesia Type: Total IV Consent for Procedure(s) Verified and Reviewed: Yes Code Status: Attempt Resuscitation ASA classification: 1-Healthy patient Is this case an emergency?: No
[2020-10-30] MEDS ORDERED: LIDOCAINE-MPF 2% 5 ML VIAL ONE (10:21)
[2020-10-30] MEDS ORDERED: PROPOFOL 200 MG/20 ML VIAL IVP ONE (10:22)
[2020-10-30 11:04] VITALS: BP 141/93
--- NOTE | 2020-10-30 14:48 | ANESTHESIA POST OP EVALUATION ---
Anesthesia Post Eval - Post Anesthesia Eval Vitals: Last Vital Signs Temp 36 C L 10/30/20 11:37 Pulse 70 10/30/20 11:37 Resp 16 10/30/20 11:37 BP 141/93 H 10/30/20 11:03 Pulse Ox 98 10/30/20 11:37 CV Function Including HR & BP: positive: Stable Pain Control: positive: Satisfactory Nausea & Vomiting: positive: Negative Mental Status: positive: Baseline Respiratory Status: Airway Patent Hydration Status: Satisfactory Anesthesia Complications: positive: None
== END 2020-10-30 09:31 | disposition home or self-care (01) ==
LOC: SDS 09:30
PROVIDERS: ATTEND Surgery
PROC: 0DB68ZX Excision of Stomach, Via Natural or Artificial Opening Endoscopic, Diagnostic (ICD-10-PCS; 2020-10-30)
PROC: 0DB28ZX Excision of Middle Esophagus, Via Natural or Artificial Opening Endoscopic, Diagnostic (ICD-10-PCS; 2020-10-30)
PROC: 0DB48ZX Excision of Esophagogastric Junction, Via Natural or Artificial Opening Endoscopic, Diagnostic (ICD-10-PCS; 2020-10-30)
PROC: 0DB98ZX Excision of Duodenum, Via Natural or Artificial Opening Endoscopic, Diagnostic (ICD-10-PCS; principal; 2020-10-30 10:30)
DX: K21.9 Gastro-esophageal reflux disease without esophagitis (principal); R13.10 Dysphagia, unspecified; R10.13 Epigastric pain; K29.50 Unspecified chronic gastritis without bleeding; I10 Essential (primary) hypertension; K44.9 Diaphragmatic hernia without obstruction or gangrene; E66.3 Overweight; Z68.28 Body mass index [BMI] 28.0-28.9, adult
CPT/HCPCS: 43239; 81025; J7120

== ENCOUNTER 2021-02-17 05:46 | Emergency (ER) | payer BC, OTHER ==
[2021-02-17 06:11] LABS: BASOPHILS # (AUTO) 0.1 10^3/uL (0.0-0.1); BASOPHILS % (AUTO) 0.9 %; EOSINOPHILS # (AUTO) 0.3 10^3/uL (0.0-0.7); EOSINOPHILS % (AUTO) 4.1 %; HGB - HEMOGLOBIN 14.5 g/dL (12.0-16.0); LYMPHOCYTES # (AUTO) 2.2 10^3/uL (1.5-3.5); LYMPHOCYTES % (AUTO) 31.7 %; MEAN CORPUSCULAR HEMOGLOBIN 30.3 pg (27.0-31.0); MEAN CORPUSCULAR VOLUME 91.9 fL (81.0-99.0); MEAN PLATELET VOLUME 9.9 fL (7.9-10.8); MONOCYTES # (AUTO) 0.6 10^3/uL (0.0-1.0); MONOCYTES % (AUTO) 8.2 %; NEUTROPHILS # (AUTO) 3.8 10^3/uL (1.5-6.6); NEUTROPHILS % (AUTO) 54.8 %; PLT - PLATELET COUNT 364 10^3/uL (130-450); RED BLOOD COUNT 4.79 10^6/uL (4.20-5.40); RED CELL DISTRIBUTION WIDTH 12.1 % (12.0-15.0); WHITE BLOOD COUNT 6.9 x10^3/uL (4.8-10.8)
--- NOTE | 2021-02-17 06:15 | ED Physician Documentation ---
PD HPI FEMALE - Stated complaint Stated Complaint: ABD PX, FEMALE - Chief complaint Chief Complaint: Abd Pain - History obtained from History obtained from: Patient - History of Present Illness Timing - onset: How many days ago (6) Timing - duration: Days (6) Timing - details: Gradual onset, Still present (much worse the past day) Associated symptoms: Vaginal bleeding (spotting). 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 denies: Vomiting, Diarrhea : reports: Vaginal bleeding (just spotting), Irregular menses. denies: Dysuria, Frequency, Discharge Skin: denies: Rash, Lesions Neurologic: reports: Generalized weakness PD PAST MEDICAL HISTORY - Past Medical History Cardiovascular: Hypertension Respiratory: None Endocrine/Autoimmune: None GI: GERD EXPLOSIVES DETONATOR: Ectopic - Past Surgical History Past Surgical History: No - Present Medications Home Medications: Ambulatory Orders Medication Instructions Recorded Confirmed hydrALAZINE [Apresoline] 25 mg ORAL BID 05/10/19 05/10/19 Labetalol [Trandate] 100 mg PO BID 10/29/20 10/30/20 Methyldopa 250 mg PO BID 10/29/20 10/30/20 Metoclopramide [Reglan] 5 mg PO TID #90 tablet 10/30/20 Naproxen [EC-Naproxen] 500 mg PO BID #15 02/17/21 Ondansetron Odt [Zofran] 4 mg TL Q6H PRN #10 tablet 02/17/21 Oxycodone HCl/Acetaminophen 1 each PO Q6H PRN #14 tablet 02/17/21 [Percocet 5-325 mg Tablet] Sennosides/Docusate Sodium [Senna 1 each PO DAILY 10 Days #10 tablet 02/17/21 Plus Tablet] - Allergies Allergies/Adverse Reactions: Allergies Allergy/AdvReac Type Severity Reaction Status Date / Time No Known Drug Allergies Allergy Verified 02/17/21 05:56 - Social History Does the pt smoke?: No Smoking Status: Never smoker Does the pt drink ETOH?: No Does the pt have substance abuse?: No - Immunizations Immunizations are current?: Yes - POLST Patient has POLST: No PD ED PE NORMAL - Vitals Vital signs reviewed: Yes - General General: Alert and oriented X 3, Well developed/nourished, Other (appears in pain from lower abd. ) - Neck Neck: Supple, no meningeal sign, No adenopathy - Cardiac Cardiac: RRR, No murmur - Respiratory Respiratory: Clear bilaterally - Abdomen Abdomen: Soft, No organomegaly, Other (very tender suprapubic and right lower area. Percussion and rebound tenderness. Upper abd not tender. No CVA tenderness. ). No: Normal bowel sounds (diminished. fullness of lower abd noted. ) - Female Female : Deferred - Rectal Rectal: Deferred - Back Back: No CVA TTP - Derm Derm: Normal color, Warm and dry - Neuro Neuro: Alert and oriented X 3, No motor deficit, Normal speech Results - Vitals Vitals: Vital Signs - 24 hr 02/17/21 02/17/21 02/17/21 05:50 08:06 09:56 Temperature 36.3 C L 36.7 C Heart Rate 73 55 L 82 Respiratory 18 18 15 Rate Blood Pressure 162/103 H 155/105 H 152/100 H O2 Saturation 99 94 99 Oxygen O2 Source Room air - Labs Labs: Laboratory Tests 02/17/21 02/17/21 02/17/21 06:06 06:06 06:06 WBC 6.9 RBC 4.79 Hgb 14.5 Hct 44.0 MCV 91.9 MCH 30.3 MCHC 33.0 RDW 12.1 Plt Count 364 MPV 9.9 Neut # (Auto) 3.8 Lymph # (Auto) 2.2 Hutchinson # (Auto) 0.6 Eos # (Auto) 0.3 Baso # (Auto) 0.1 Absolute Nucleated RBC 0.00 Nucleated RBC % 0.0 Sodium 137 Potassium 3.3 L Chloride 102 Carbon Dioxide 25 Anion Gap 10.0 BUN 8 Creatinine 0.8 Estimated GFR (MDRD) 97 Glucose 113 H Calcium 9.2 Total Bilirubin 0.9 AST 19 ALT 20 Alkaline Phosphatase 56 Total Protein 7.7 Albumin 4.2 Globulin 3.5 Albumin/Globulin Ratio 1.2 Lipase 31 HCG, Quant < 0.60 Urine Color Urine Clarity Urine pH Ur Specific Marcellus Urine Protein Urine Glucose (UA) Urine Ketones Urine Occult Blood Urine Nitrite Urine Bilirubin Urine Urobilinogen Ur Leukocyte Esterase Urine RBC Urine WBC Ur Squamous Epith Cells Urine Bacteria Ur Microscopic Review Urine Culture Comments 02/17/21 08:00 WBC RBC Hgb Hct MCV MCH MCHC RDW Plt Count MPV Neut # (Auto) Lymph # (Auto) Hutchinson # (Auto) Eos # (Auto) Baso # (Auto) Absolute Nucleated RBC Nucleated RBC % Sodium Potassium Chloride Carbon Dioxide Anion Gap BUN Creatinine Estimated GFR (MDRD) Glucose Calcium Total Bilirubin AST ALT Alkaline Phosphatase Total Protein Albumin Globulin Albumin/Globulin Ratio Lipase HCG, Quant Urine Color STRAW Urine Clarity CLEAR Urine pH 7.0 Ur Specific Marcellus 1.010 Urine Protein NEGATIVE Urine Glucose (UA) NEGATIVE Urine Ketones NEGATIVE Urine Occult Blood LARGE H Urine Nitrite NEGATIVE Urine Bilirubin NEGATIVE Urine Urobilinogen 0.2 (NORMAL) Ur Leukocyte Esterase NEGATIVE Urine RBC 11-25 H Urine WBC 0-3 Ur Squamous Epith Cells RARE Squamous Urine Bacteria Rare Ur Microscopic Review INDICATED Urine Culture Comments NOT INDICATED - Rads (name of study) pelvic US Radiology: Prelim report reviewed (2.5 cm right ovarian cyst. Normal flow both sides. No free fluid. Normal uterus. ), See rad report abd/pelvic CT Radiology: Prelim report reviewed (normal appendix. No acute process. Not of ovarian cyst previously seem on U/S), See rad report PD MEDICAL DECISION MAKING - ED course Complexity details: re-evaluated patient (repeat doses of meds for comfort. Recheck after labs and imaging shows less tenderness but still some mid and right lower abd. No acute process to account for the pain, so presume some pain from the cyst which is on that side and also possible menstrual cramping as is having some bleeding with pain.), considered differential (very concerning for acute process with tenderness, mild distension, and rebound. Start with pelvic U/S. Given IV fluids and meds. ), d/w patient Departure - Departure Disposition: 01 Home, Self Care Clinical Impression: Lower abdominal pain Ovarian cyst Qualifiers: Laterality: right Qualified Code(s): N83.201 - Unspecified ovarian cyst, right side Condition: Stable Record reviewed to determine appropriate education?: Yes Instructions: ED Pelvic Pain [facility] Follow-Up: Quoc Godinez DO [Primary Care Provider] - Donna Landreos MD [Provider Admit Priv/Credential] - Prescriptions: Naproxen [EC-Naproxen] 500 mg PO BID #15 Oxycodone HCl/Acetaminophen [Percocet 5-325 mg Tablet] 1 each PO Q6H PRN #14 tablet PRN Reason: pain Sennosides/Docusate Sodium [Senna Plus Tablet] 1 each PO DAILY 10 Days #10 tablet Ondansetron Odt [Zofran] 4 mg TL Q6H PRN #10 tablet PRN Reason: Nausea / Vomiting Comments: Hydrated. Use naproxen anti-inflammatory twice daily with food for pain and inflammation. Presuming your pain is coming from inflammation of the uterus with your menses perhaps and also may be coming from the ovarian cyst. The urine test does not show signs of infection. Your test is negative. Blood count is normal. The ultrasound showed the ovarian cyst but has blood flow to the ovary and no signs of bleeding from it. Your CT scan shows normal appendix, no kidney stones, no other acute process. See how you do with the anti-inflammatory along with some nausea and pain medici ne. Add a stool softener daily as well to contract the effect of the pain medicines. Recheck if not improved well in the next 1 to 2 days at most. Return if worsening. Discharge Date/Time: 02/17/21 10:08
[2021-02-17] MEDS ORDERED: KETOROLAC 30 MG/ML VIAL IVP STA (06:25)
[2021-02-17] MEDS ORDERED: ONDANSETRON 4 MG/2 ML VIAL IVP STA ×2 (06:25→07:40)
[2021-02-17] MEDS ORDERED: MORPHINE 2 MG/ML CARPUJECT IVP STA (06:25)
[2021-02-17 06:26] LABS: ALBUMIN 4.2 g/dL (3.2-5.5); ALBUMIN/GLOBULIN RATIO 1.2 (1.0-2.2); BILIRUBIN,TOTAL 0.9 mg/dL (0.2-1.0); CALCIUM 9.2 mg/dL (8.5-10.3); CREATININE 0.8 mg/dL (0.4-1.0); POTASSIUM 3.3 mmol/L (3.5-5.0); TOTAL PROTEIN 7.7 g/dL (6.7-8.2)
[2021-02-17] MEDS ORDERED: SODIUM CHLORIDE 0.9% 1,000 ML IV STA (06:26)
[2021-02-17] MEDS ORDERED: HYDROmorphone 1 MG/ML CARPUJECT IVP STA ×2 (06:52→07:40)
[2021-02-17 08:23] LABS: BILIRUBIN,URINE NEGATIVE (NEGATIVE); GLUCOSE, URINE (UA) NEGATIVE (NEGATIVE); KETONES,URINE (UA) NEGATIVE (NEGATIVE); LEUKOCYTE ESTERASE, URINE NEGATIVE (NEGATIVE); NITRITE,URINE NEGATIVE (NEGATIVE); OCCULT BLOOD,URINE LARGE (NEGATIVE); PROTEIN,URINE NEGATIVE (NEGATIVE); UROBILINOGEN,URINE 0.2 (NORMAL) E.U./dL (NORMAL)
[2021-02-17 08:28] LABS: CLARITY,URINE CLEAR (CLEAR)
[2021-02-17] MEDS ORDERED: IOVERSOL 320 100 ML VIAL IVP ONE ×2 (08:31→08:55)
[2021-02-17 08:32] LABS: WBC,URINE 0-3 /HPF (0-5)
[2021-02-17 08:33] LABS: BACTERIA,URINE Rare /HPF (None Seen); SQUAMOUS EPITHELIAL CELL,UR RARE Squamous (<= Few)
--- NOTE | 2021-02-17 09:00 | Ultrasound Report ---
PROCEDURE: Pelvic w/Transvag+Doppler Comp INDICATIONS: lower abd pain central and right TECHNIQUE: Real-time scanning was performed of the pelvic organs, with image documentation. Additional endovagi nal scanning was necessary due to incomplete visualization of the adnexal and endometrial structures by transabdominal scanning. COMPARISON: Ultrasound pelvis 09/16/2019. FINDINGS: No pathologic free abdominal or pelvic fluid. Uterus: Uterus is anteverted and measures 7. 4.4 x 4.0 cm. The endometrium measures up to 0.6 cm in combined thickness. No vascularity within the endometrium on color Doppler interrogation. There are a few small nabothian cysts noted. Ovaries: The right ovary measures 4.9 x 2.4 x 3.0 cm and the left ovary measures 3.3 x 2.7 x 2.2 cm. There is a thin-walled anechoic right ovarian cyst measuring up to 2.7 x 2.6 x 2.2 cm. There is post erior acoustic enhancement. No internal vascularity and color Doppler interrogation. There is patent arterial and venous flow demonstrated within the ovaries. IMPRESSION: 1. Normal sonographic study of the pelvis. 2. No evidence of ovarian torsion. 3. Simple appearing right ovarian cyst likely represents a follicular cyst. Reviewed by: Parish Ramírez MD on 02/17/2021 8:59 AM PDT Approved by: Parish Ramírez MD on 02/17/2021 8:59 AM PDT Station ID: [id number]
--- NOTE | 2021-02-17 09:09 | CT Report ---
PROCEDURE: Abdomen/Pelvis W INDICATIONS: lower abd pain for 6 days, worsening CONTRAST: IV CONTRAST: Optiray 320 ml: 100 PO CONTRAST: *NO PO CONTRAST TECHNIQUE: After the administration of weight appropriate dose of intravenous contrast, 5 mm thick sections acqu ired from the diaphragms to the symphysis. 5 mm thick coronal and sagittal reformats were acquired. For radiation dose reduction, the following was used: automated exposure control, adjustment of mA and/or kV according to patient size. COMPARISON: None. FINDINGS: Image quality: Excellent. ABDOMEN: Lung bases: Patchy bibasilar atelectasis. Heart size is normal. Solid organs: Liver and spleen are normal in size and enhancement. Diffuse hepatic steatosis. Gallb ladder is unremarkable. Biliary system is non dilated. Pancreas enhances normally without peripancr eatic inflammation. No adrenal nodules. Kidneys demonstrate normal size and enhancement, without hy dronephrosis. There is a incompletely characterized 1.4 cm left renal cortical hypodensity likely re presenting a cyst. Peritoneum and bowel: Bowel loops demonstrate normal wall thickness and caliber. No free fluid or a ir. Scant colonic diverticula without acute inflammation. Normal appendix. Nodes and vessels: No retroperitoneal or mesenteric adenopathy by size criteria. Aorta and inferior vena cava are normal in size. Miscellaneous: Small fat-containing umbilical hernia without acute inflammation. PELVIS: Genitourinary: Bladder wall thickness is normal for degree of distention. There are bilateral adnex al/ovarian hypodensities likely representing cysts. Right-sided measures approximately 3.1 cm and the left side measures approximately 2.9 cm. No surrounding inflammatory changes or suspicious solid mas s lesions. No pelvic free fluid. Miscellaneous: No inguinal hernias or adenopathy. Bones: No suspicious bony lesions. No vertebral body compression fractures. Lower lumbar spondylos is most severe at L5-S1. IMPRESSION: 1. CT abdomen and pelvis without acute abnormalities. 2. Normal appendix. 3. Scattered colonic diverticula without acute diverticulitis. 4. Bilateral ovarian/adnexal hypodensities favored to represent ovarian cysts. No suspicious solid ma ss lesions or pelvic free fluid. If there is persistent clinical concern related to the pelvis, furth er evaluation with pelvic ultrasound can be considered. 5. Incompletely characterized 1.4 cm left renal cortical hypodensity which statistically represents a cyst. Consider outpatient renal ultrasound to further characterize. Reviewed by: Aidan Landers MD on 02/17/2021 9:08 AM PDT Approved by: Aidan Landers MD on 02/17/2021 9:08 AM PDT Station ID: [id number]
[2021-02-17 09:59] VITALS: BP 152/100
== END 2021-02-17 10:08 | disposition home or self-care (01) ==
LOC: ED 05:46
DX: N83.201 Unspecified ovarian cyst, right side (principal); I10 Essential (primary) hypertension
CPT/HCPCS: 36415; 51798; 74177; 76830; 76856; 80053; 81001; 83690; 84702; 85025; 93975; 96374; 96375; 96376; 99284; 99285; J1170; Q9967; 81003; 87086

== ENCOUNTER 2021-03-11 08:00 | Outpatient (CLI) | payer BC, OTHER ==
[2021-03-11 18:26] LABS: THYROID STIMULATING HORMONE 1.39 uIU/mL (0.34-5.60)
[2021-03-11 18:31] LABS: PROLACTIN 16.68 ng/mL
[2021-03-11 18:54] LABS: FOLLICLE STIMULATING HORMONE 4.92 mIU/mL
== END 2021-03-11 08:01 | disposition home or self-care (01) ==
LOC: LAB.WCP 08:00
PROVIDERS: ATTEND Family Medicine
DX: N92.6 Irregular menstruation, unspecified (principal)
CPT/HCPCS: 36415; 83001; 84146; 84403; 84443; 84702

== ENCOUNTER 2021-06-04 12:14 | Outpatient (CLI) | payer BC, OTHER ==
--- NOTE | 2021-06-04 13:13 | XRAY Report ---
PROCEDURE: Chest 2 View X-Ray INDICATIONS: SHORTNESS OF BREATH TECHNIQUE: 2 view(s) of the chest. COMPARISON: March 21, 2020 FINDINGS: SUPPORT DEVICES: None. LUNG/PLEURA: No focal consolidation or pulmonary edema. No pleural effusion or space-occupying pneumo thorax. MEDIASTINUM: The cardiomediastinal silhouette is within normal limits. BONES/SOFT TISSUES: No acute abnormality. IMPRESSION: 1.No acute cardiopulmonary abnormality. Reviewed by: Scooby Sharif MD on 06/04/2021 1:11 PM PDT Approved by: Scooby Sharif MD on 06/04/2021 1:11 PM PDT Station ID: [id number]
== END 2021-06-04 12:15 | disposition home or self-care (01) ==
LOC: DI 12:14
PROVIDERS: ATTEND Family Medicine
DX: R06.02 Shortness of breath (principal)

== ENCOUNTER 2021-08-10 08:20 | Outpatient (CLI) | payer BC, OTHER ==
[2021-08-10 12:23] LABS: BASOPHILS # (AUTO) 0.1 10^3/uL (0.0-0.1); BASOPHILS % (AUTO) 0.6 %; EOSINOPHILS # (AUTO) 0.2 10^3/uL (0.0-0.7); EOSINOPHILS % (AUTO) 2.8 %; HCT - HEMATOCRIT 41.2 % (37.0-47.0); HGB - HEMOGLOBIN 13.5 g/dL (12.0-16.0); LYMPHOCYTES # (AUTO) 1.9 10^3/uL (1.5-3.5); LYMPHOCYTES % (AUTO) 24.3 %; MEAN CORPUSCULAR HEMOGLOBIN 29.9 pg (27.0-31.0); MEAN CORPUSCULAR HGB CONC 32.8 g/dL (32.0-36.0); MEAN CORPUSCULAR VOLUME 91.4 fL (81.0-99.0); MEAN PLATELET VOLUME 11.1 fL (7.9-10.8); MONOCYTES # (AUTO) 0.5 10^3/uL (0.0-1.0); NEUTROPHILS # (AUTO) 5.1 10^3/uL (1.5-6.6); NEUTROPHILS % (AUTO) 65.2 %; PLT - PLATELET COUNT 355 10^3/uL (130-450); RED BLOOD COUNT 4.51 10^6/uL (4.20-5.40); RED CELL DISTRIBUTION WIDTH 12.4 % (12.0-15.0); WHITE BLOOD COUNT 7.8 x10^3/uL (4.8-10.8)
[2021-08-10 12:45] LABS: ALBUMIN/GLOBULIN RATIO 1.2 (1.0-2.2); ALKALINE PHOSPHATASE 45 IU/L (42-121); ALT ALANINE AMINOTRANSFERASE 18 IU/L (10-60); AST ASPARTATE AMINOTRANSFERASE 20 IU/L (10-42); BUN - BLOOD UREA NITROGEN 9 mg/dL (6-20); CARBON DIOXIDE - CO2 26 mmol/L (21-32); CHLORIDE 102 mmol/L (101-111); CHOL/HDL RATIO 5.7 (<4.4); CHOLESTEROL 243 mg/dL; CREATININE 0.8 mg/dL (0.4-1.0); GFR - MDRD 97 (>89); GLUCOSE 101 mg/dL (70-100); HDL CHOLESTEROL 43 mg/dL; LDL CHOLESTEROL,CALCULATED 155 mg/dL; LDL/HDL RATIO 3.6 (<4.4); POTASSIUM 3.4 mmol/L (3.5-5.0); SODIUM 138 mmol/L (135-145); TOTAL PROTEIN 7.3 g/dL (6.7-8.2); TRIGLYCERIDES 224 mg/dL; VLDL CHOLESTEROL 45 mg/dL
[2021-08-10 13:03] LABS: ESTIMATED AVERAGE GLUCOSE 100 mg/dL (70-100); HEMOGLOBIN A1c% 5.1 % (4.27-6.07)
== END 2021-08-10 23:59 | disposition home or self-care (01) ==
LOC: LAB.WCP 08:20
PROVIDERS: ATTEND Family Medicine
DX: I10 Essential (primary) hypertension (principal); E78.5 Hyperlipidemia, unspecified; R73.01 Impaired fasting glucose
CPT/HCPCS: 36415; 80053; 80061; 83036; 83721; 85025

== ENCOUNTER 2022-08-31 10:13 | Outpatient (CLI) | payer BC, OTHER ==
[2022-08-31 10:46] LABS: CALCIUM 9.1 mg/dL (8.5-10.3); CREATININE 0.8 mg/dL (0.4-1.0); POTASSIUM 3.6 mmol/L (3.5-5.0)
== END 2022-08-31 10:14 | disposition home or self-care (01) ==
LOC: LAB 10:13
PROVIDERS: ATTEND Family Medicine
DX: I10 Essential (primary) hypertension (principal); R94.31 Abnormal electrocardiogram [ECG] [EKG]; R00.2 Palpitations
CPT/HCPCS: 36415; 80048; 84484

== ENCOUNTER 2022-11-16 09:11 | Outpatient (CLI) | payer BC | END 2022-11-16 09:12 | disposition home or self-care (01) | LOC: MAC.MOP 09:11 | PROVIDERS: ATTEND Family Medicine | DX: R94.31 Abnormal electrocardiogram [ECG] [EKG] (principal); I10 Essential (primary) hypertension; R00.2 Palpitations | CPT/HCPCS: 93246 ==

== ENCOUNTER 2022-12-12 10:30 | Outpatient (CLI) | payer BC | END 2022-12-12 10:31 | disposition home or self-care (01) | LOC: MAC.INF 10:30 | PROVIDERS: ATTEND Internal Medicine | DX: R94.31 Abnormal electrocardiogram [ECG] [EKG] (principal); I47.20 Ventricular tachycardia, unspecified; I49.1 Atrial premature depolarization; I49.3 Ventricular premature depolarization; R00.2 Palpitations; I10 Essential (primary) hypertension | CPT/HCPCS: 93248 ==

== ENCOUNTER 2023-02-16 06:53 | Outpatient (CLI) | payer BC ==
[2023-02-16 07:15] LABS: BASOPHILS # (AUTO) 0.1 10^3/uL (0.0-0.1); BASOPHILS % (AUTO) 0.8 %; EOSINOPHILS # (AUTO) 0.2 10^3/uL (0.0-0.7); EOSINOPHILS % (AUTO) 3.3 %; HCT - HEMATOCRIT 39.8 % (37.0-47.0); HGB - HEMOGLOBIN 12.6 g/dL (12.0-16.0); LYMPHOCYTES # (AUTO) 1.6 10^3/uL (1.5-3.5); MEAN CORPUSCULAR HEMOGLOBIN 27.9 pg (27.0-31.0); MEAN CORPUSCULAR HGB CONC 31.7 g/dL (32.0-36.0); MEAN CORPUSCULAR VOLUME 88.2 fL (81.0-99.0); MEAN PLATELET VOLUME 9.9 fL (7.9-10.8); MONOCYTES # (AUTO) 0.5 10^3/uL (0.0-1.0); MONOCYTES % (AUTO) 7.6 %; NEUTROPHILS # (AUTO) 3.9 10^3/uL (1.5-6.6); NEUTROPHILS % (AUTO) 61.9 %; PLT - PLATELET COUNT 365 10^3/uL (130-450); RED BLOOD COUNT 4.51 10^6/uL (4.20-5.40); RED CELL DISTRIBUTION WIDTH 12.6 % (12.0-15.0); WHITE BLOOD COUNT 6.3 x10^3/uL (4.8-10.8)
[2023-02-16 07:31] LABS: ALBUMIN 4.1 g/dL (3.2-5.5); ALBUMIN/GLOBULIN RATIO 1.2 (1.0-2.2); ALKALINE PHOSPHATASE 44 IU/L (42-121); ALT ALANINE AMINOTRANSFERASE 19 IU/L (10-60); AST ASPARTATE AMINOTRANSFERASE 20 IU/L (10-42); BILIRUBIN,TOTAL 0.7 mg/dL (0.2-1.0); BUN - BLOOD UREA NITROGEN 11 mg/dL (6-20); CALCIUM 8.8 mg/dL (8.5-10.3); CARBON DIOXIDE - CO2 26 mmol/L (21-32); CHLORIDE 103 mmol/L (101-111); CHOL/HDL RATIO 5.6 (<4.4); CHOLESTEROL 262 mg/dL; CREATININE 0.8 mg/dL (0.4-1.0); GFR - MDRD 96 (>89); GLUCOSE 114 mg/dL (70-100); HDL CHOLESTEROL 47 mg/dL; LDL CHOLESTEROL,CALCULATED 178 mg/dL; LDL/HDL RATIO 3.8 (<4.4); POTASSIUM 3.1 mmol/L (3.5-5.0); SODIUM 137 mmol/L (135-145); TOTAL PROTEIN 7.6 g/dL (6.7-8.2); TRIGLYCERIDES 186 mg/dL; VLDL CHOLESTEROL 37 mg/dL
[2023-02-16 07:35] LABS: CRP - C-REACTIVE PROTEIN < 1.0 mg/dL (0-1.0)
[2023-02-16 07:42] LABS: THYROID STIMULATING HORMONE 2.13 uIU/mL (0.34-5.60)
[2023-02-16 10:01] LABS: ESTIMATED AVERAGE GLUCOSE 103 mg/dL (70-100); HEMOGLOBIN A1c% 5.2 % (4.27-6.07)
[2023-02-16 11:35] LABS: RHEUMATOID FACTOR NEGATIVE (Negative)
== END 2023-02-16 06:54 | disposition home or self-care (01) ==
LOC: LAB 06:53
PROVIDERS: ATTEND Internal Medicine
DX: M25.50 Pain in unspecified joint (principal); I10 Essential (primary) hypertension; R73.01 Impaired fasting glucose; R00.2 Palpitations
CPT/HCPCS: 36415; 80053; 80061; 83036; 83721; 84443; 85025; 85651; 86038; 86140; 86430

== ENCOUNTER 2023-02-16 07:11 | Outpatient (CLI) | payer BC | END 2023-02-16 07:12 | disposition home or self-care (01) | LOC: RT 07:11 | PROVIDERS: ATTEND Internal Medicine | DX: I10 Essential (primary) hypertension (principal); R00.2 Palpitations; M25.50 Pain in unspecified joint; R73.01 Impaired fasting glucose | CPT/HCPCS: 36415; 80053; 80061; 83036; 83721; 84443; 85025; 85651; 86038; 86140; 86430; 93005 ==

== ENCOUNTER 2023-08-09 07:45 | Outpatient (CLI) | payer BC ==
[2023-08-09 08:03] LABS: BASOPHILS # (AUTO) 0.1 10^3/uL (0.0-0.1); BASOPHILS % (AUTO) 0.6 %; EOSINOPHILS # (AUTO) 0.3 10^3/uL (0.0-0.7); EOSINOPHILS % (AUTO) 3.4 %; HCT - HEMATOCRIT 40.5 % (37.0-47.0); LYMPHOCYTES # (AUTO) 1.9 10^3/uL (1.5-3.5); LYMPHOCYTES % (AUTO) 23.4 %; MEAN CORPUSCULAR HEMOGLOBIN 28.6 pg (27.0-31.0); MEAN CORPUSCULAR HGB CONC 32.1 g/dL (32.0-36.0); MEAN CORPUSCULAR VOLUME 89.2 fL (81.0-99.0); MEAN PLATELET VOLUME 10.3 fL (7.9-10.8); MONOCYTES # (AUTO) 0.6 10^3/uL (0.0-1.0); MONOCYTES % (AUTO) 8.1 %; NEUTROPHILS # (AUTO) 5.1 10^3/uL (1.5-6.6); PLT - PLATELET COUNT 350 10^3/uL (130-450); RED BLOOD COUNT 4.54 10^6/uL (4.20-5.40); RED CELL DISTRIBUTION WIDTH 13.1 % (12.0-15.0); WHITE BLOOD COUNT 7.9 x10^3/uL (4.8-10.8)
[2023-08-09 08:15] LABS: ALBUMIN 4.4 g/dL (3.2-5.5); ALBUMIN/GLOBULIN RATIO 1.4 (1.0-2.2); ALKALINE PHOSPHATASE 51 IU/L (42-121); ALT ALANINE AMINOTRANSFERASE 17 IU/L (10-60); AST ASPARTATE AMINOTRANSFERASE 16 IU/L (10-42); BILIRUBIN,TOTAL 0.6 mg/dL (0.2-1.0); BUN - BLOOD UREA NITROGEN 9 mg/dL (6-20); CALCIUM 9.4 mg/dL (8.5-10.3); CARBON DIOXIDE - CO2 27 mmol/L (21-32); CHLORIDE 103 mmol/L (101-111); CHOL/HDL RATIO 5.3 (<4.4); CHOLESTEROL 234 mg/dL; CREATININE 0.8 mg/dL (0.6-1.3); GFR - MDRD 96 (>89); GLUCOSE 119 mg/dL (74-104); HDL CHOLESTEROL 44 mg/dL; LDL CHOLESTEROL,CALCULATED 154 mg/dL; LDL/HDL RATIO 3.5 (<4.4); POTASSIUM 3.4 mmol/L (3.5-4.5); SODIUM 139 mmol/L (135-145); TOTAL PROTEIN 7.5 g/dL (6.4-8.9); TRIGLYCERIDES 180 mg/dL (48-352); VLDL CHOLESTEROL 36 mg/dL
[2023-08-09 12:25] LABS: ESTIMATED AVERAGE GLUCOSE 103 mg/dL (70-100); HEMOGLOBIN A1c% 5.2 % (4.27-6.07)
== END 2023-08-09 07:46 | disposition home or self-care (01) ==
LOC: LAB 07:45
PROVIDERS: ATTEND Internal Medicine
DX: Z00.00 Encounter for general adult medical examination without abnormal findings (principal); R73.01 Impaired fasting glucose
CPT/HCPCS: 36415; 80053; 80061; 83036; 83721; 84443; 85025

== ENCOUNTER 2024-04-03 07:51 | Outpatient (CLI) | payer BC ==
[2024-04-03 08:03] LABS: BASOPHILS # (AUTO) 0.1 10^3/uL (0.0-0.1); BASOPHILS % (AUTO) 0.7 %; EOSINOPHILS # (AUTO) 0.3 10^3/uL (0.0-0.7); EOSINOPHILS % (AUTO) 3.8 %; HCT - HEMATOCRIT 41.5 % (37.0-47.0); LYMPHOCYTES % (AUTO) 22.8 %; MEAN CORPUSCULAR HEMOGLOBIN 27.4 pg (27.0-31.0); MEAN CORPUSCULAR HGB CONC 31.3 g/dL (32.0-36.0); MEAN CORPUSCULAR VOLUME 87.6 fL (81.0-99.0); MEAN PLATELET VOLUME 10.4 fL (7.9-10.8); MONOCYTES # (AUTO) 0.6 10^3/uL (0.0-1.0); NEUTROPHILS # (AUTO) 5.8 10^3/uL (1.5-6.6); NEUTROPHILS % (AUTO) 65.3 %; PLT - PLATELET COUNT 349 10^3/uL (130-450); RED BLOOD COUNT 4.74 10^6/uL (4.20-5.40); RED CELL DISTRIBUTION WIDTH 13.4 % (12.0-15.0); WHITE BLOOD COUNT 8.9 x10^3/uL (4.8-10.8)
[2024-04-03 08:25] LABS: ALBUMIN 4.5 g/dL (3.2-5.5); ALBUMIN/GLOBULIN RATIO 1.4 (1.0-2.2); ALKALINE PHOSPHATASE 59 IU/L (42-121); ALT ALANINE AMINOTRANSFERASE 20 IU/L (10-60); AST ASPARTATE AMINOTRANSFERASE 16 IU/L (10-42); BILIRUBIN,TOTAL 0.6 mg/dL (0.2-1.0); BUN - BLOOD UREA NITROGEN 8 mg/dL (6-20); CALCIUM 9.7 mg/dL (8.5-10.3); CARBON DIOXIDE - CO2 25 mmol/L (21-32); CHLORIDE 101 mmol/L (101-111); CHOL/HDL RATIO 5.9 (<4.4); CHOLESTEROL 255 mg/dL; CREATININE 0.8 mg/dL (0.6-1.3); GFR - MDRD 96 (>89); GLUCOSE 119 mg/dL (74-104); HDL CHOLESTEROL 43 mg/dL; LDL CHOLESTEROL,CALCULATED 175 mg/dL; LDL/HDL RATIO 4.1 (<4.4); LIPASE 17 U/L (11-82); POTASSIUM 3.7 mmol/L (3.5-4.5); SODIUM 135 mmol/L (135-145); TOTAL PROTEIN 7.7 g/dL (6.4-8.9); TRIGLYCERIDES 186 mg/dL; VLDL CHOLESTEROL 37 mg/dL
[2024-04-03 08:33] LABS: ESTIMATED AVERAGE GLUCOSE 105 mg/dL (70-100); HEMOGLOBIN A1c% 5.3 % (4.27-6.07)
== END 2024-04-03 07:52 | disposition home or self-care (01) ==
LOC: LAB 07:51
PROVIDERS: ATTEND Internal Medicine
DX: I10 Essential (primary) hypertension (principal); Z13.220 Encounter for screening for lipoid disorders; R73.01 Impaired fasting glucose; R10.9 Unspecified abdominal pain
CPT/HCPCS: 36415; 80053; 80061; 83036; 83690; 83721; 85025

== ENCOUNTER 2024-04-13 07:02 | Outpatient (CLI) | payer BC ==
--- NOTE | 2024-04-14 14:12 | Ultrasound Report ---
PROCEDURE: Abdomen Limited INDICATIONS: ABD PAIN TECHNIQUE: Real-time focused scanning was performed of the abdomen, with image documentation. COMPARISONS: None. FINDINGS: Liver measures 17 cm. Heterogeneous echotexture. Cholelithiasis. No sonographic Miller's sign. CBD is nondilated. Visualized pancreas is unremarkable. Right kidney measures 10 cm. IVC is patent. IMPRESSION: Cholelithiasis without sonographic Miller's sign. Heterogeneous hepatic echotexture is nonspecific, most commonly due to fibrofatty infiltration. Reviewed by: Obed Esparza MD on 04/14/2024 2:11 PM PDT Approved by: Obed Esparza MD on 04/14/2024 2:11 PM PDT Station ID: [id number]
== END 2024-04-13 07:03 | disposition home or self-care (01) ==
LOC: DI 07:02
PROVIDERS: ATTEND Internal Medicine
DX: K80.20 Calculus of gallbladder without cholecystitis without obstruction (principal)

== ENCOUNTER 2024-05-01 08:24 | Outpatient (CLI) | payer BC ==
[2024-05-01 09:10] LABS: CALCIUM 9.4 mg/dL (8.5-10.3); CREATININE 0.8 mg/dL (0.6-1.3); POTASSIUM 3.5 mmol/L (3.5-4.5)
== END 2024-05-01 08:25 | disposition home or self-care (01) ==
LOC: LAB 08:24
PROVIDERS: ATTEND Internal Medicine
DX: I10 Essential (primary) hypertension (principal)
CPT/HCPCS: 36415; 80048